=== PATIENT | male | born 1950 | race Caucasian/White ===

== ENCOUNTER 2017-06-27 19:55 | Inpatient (IN) | payer MEDICARE, MEDICAID ==
[2017-06-27 21:55] VITALS: BP 171/84
[2017-06-27] MEDS ORDERED: Maalox 30 mL Cup PO PRN (22:01)
[2017-06-27] MEDS ORDERED: Magnesium Hydroxide (MOM) 30 mL UDC PO PRN (22:01)
[2017-06-28] MEDS: Aspirin 81mg Chewable Tab PO SCH (09:51)
[2017-06-28] MEDS: Multivitamin Tab PO SCH (09:52)
--- NOTE | 2017-06-28 19:32 | History & Physical ---
ADMIT DATE: 06/27/2017 HISTORY OF PRESENT ILLNESS: The patient is a 66-year-old male with long history of coronary artery disease, CHF, status post CABG, status post defibrillator placement, history of chronic smoking, history of dementia, psychosis, admitted to Geropsych Department under Dr. Simmons's service. The patient denies any chest pain, shortness of breath, nausea, vomiting, fever or chills. PAST MEDICAL HISTORY: Coronary artery disease, hypertension, COPD, and hyperlipidemia. PAST SURGICAL HISTORY: CABG, ICD placement. ALLERGIES: None. MEDICATIONS: Follow admission reconciliation. SOCIAL HISTORY: Chronic smoker, drinks socially. No drugs. FAMILY HISTORY: Noncontributory. REVIEW OF SYSTEMS: RENAL SYSTEM: No history of chronic renal disorder. CARDIOVASCULAR SYSTEM: He has history of hypertension, CHF, coronary artery disease status post CABG, status post ICD placement. ENDOCRINE SYSTEM: No diabetes or thyroid problem. GASTROINTESTINAL SYSTEM: No upper or lower gastrointestinal bleed. NEUROLOGICAL SYSTEM: He has history of dementia, psychosis. MUSCULOSKELETAL SYSTEM: No muscular dystrophy. HEMATOLOGIC SYSTEM: No bleeding tendencies. RESPIRATORY SYSTEM: ____. PHYSICAL EXAMINATION: GENERAL: He is awake, alert, oriented. VITAL SIGNS: Temperature is 98, heart rate 65, blood pressure 131/81. HEENT: Normocephalic. Pupils equally reactive to light and accommodation. Sclerae clear. NECK: Supple. Negative for lymphadenopathy, JVD or bruit. CHEST: Bilateral normal. No rhonchi or wheezing. HEART: S1, S2 normal. No murmur or gallop. ABDOMEN: Soft. Bowel sounds positive. EXTREMITIES: No edema. BACK: ____. GENITOURINARY AND RECTAL: No complaint, done by the primary physician. NEUROLOGIC: He is awake, alert, oriented. Cranial nerve #1, the patient with ____. Cranial nerve #2, the patient was able to read ____. Cranial nerve #3, the patient with bipolar ____. Cranial nerve #4, the patient able to move eyeball inward and downwards. Cranial nerve #5, the patient is able to clench teeth and has a normal sensation ____. Cranial nerve #6, the patient able to move eye ball lateral. Cranial nerve #7, the patient able to move eyebrow upward. Cranial nerve #8, the patient was able to hear finger rubs ____. Cranial nerve #9, the patient has normal gag reflex. Cranial nerve #10, the patient was able to move soft palate upward ____. Cranial nerve #11, the patient able to shrug shoulders on both sides. Cranial nerve #12, the patient able to stick tongue straight. Motor system examination within normal limits. Deep tendon reflexes within normal limits. Coordination of muscle within normal limits. ASSESSMENT: 1. Coronary artery disease. 2. Hypertension. 3. Congestive heart failure. 4. Status post coronary artery bypass graft. 5. Status post implantable cardioverter-defibrillator placement. 6. Dementia, psychosis. PLAN: The patient is in the hospital under Dr. Simmons's service. MEDICAL PROBLEMS TO BE ADDRESSED DURING HOSPITALIZATION: Psychosis, dementia. MEDICAL PROBLEMS TO BE ADDRESSED AT DISCHARGE: Hypertension, coronary artery disease. The patient is medically stable for activity. Thank you Dr. Simmons for asking me to see your patient. JOB# [id number]
--- NOTE | 2017-06-28 22:29 | Psychosocial Evaluation ---
DATE OF SERVICE: 06/28/2017 IDENTIFYING INFORMATION: The patient is a 66-year-old male transferred from [facility] on a 5150 hold for being a danger to self and others. HISTORY OF PRESENT ILLNESS: The patient stated that he would not be returning to his [facility] due to paranoid belief that people were there illegally and stealing money from him. The patient stated that he was part of the [employer] and [employer] and that he was going to [place] or imprison anyone who tried to get him psychiatric help. In general, the patient was quite disorganized and delusional, a very poor historian, unable to verify most of his information. PAST PSYCHIATRIC HISTORY: The patient seems to have a history of psychosis. MEDICATIONS: As the records indicated he has been on Risperdal before at 2 mg p.o. t.i.d., unknown if he has been compliant with these medications. MENTAL STATUS EXAMINATION: The patient is fairly groomed, appears to be stated age, somewhat disheveled, poor eye contact, guarded and resistant during interview. Speech is normal rate, rhythm, and tone. Mood and affect irritable and labile. Thought process/thought content: The patient is paranoid, grandiose, and very disorganized. Cognition: The patient is alert, awake, and disoriented, refusing to answer questions regarding orientation or concentration or attention span. Insight and judgment is poor. DIAGNOSTIC IMPRESSION: Psychosis, not otherwise specified, rule out dementia with behavioral disturbances as well as psychotic features. PLAN: We will recommend starting the patient on his medication notably Risperdal 2 mg t.i.d. We will monitor on a daily basis and adjust as needed. [facility]# [id number]
[2017-06-29] MEDS: Multivitamin Tab PO SCH (08:27)
[2017-06-29] MEDS: Aspirin 81mg Chewable Tab PO SCH (08:28)
--- NOTE | 2017-06-29 17:22 | Internal Medicine Prog Note ---
Internal Medicine Subjective - Subjective Service Date: 06/29/17 Patient seen and examined:: without staff (HE FEELS BETTER,NO CHEST PAIN OR SOB. ) Patient is:: awake, in bed Per staff patient has:: no adverse event (HE DENIES ANY CHES T PAIN OR SOB.) Internal Medicine Objective - Physical Exam Vitals and I&O: Vital Signs Temp 97.6 F 06/29/17 15:43 Pulse 48 06/29/17 16:06 Resp 20 06/29/17 15:43 BP 122/76 06/29/17 16:06 Pulse Ox 95 06/29/17 15:43 Intake & Output 06/28/17 06/29/17 06/29/17 18:59 06:59 18:59 Intake Total 120 Balance 120 Intake: Oral 120 Other: # Voids 2 Active Medications: Current Medications Acetaminophen (Tylenol) 650 mg PO Q4HR PRN PRN Reason: Mild Pain / Temp above 100 Stop: 08/26/17 22:00 Last Admin: 06/29/17 08:27 Dose: 650 mg Acetaminophen (Tylenol) 650 mg PO Q6HR PRN PRN Reason: Pain (Mild) Stop: 08/27/17 00:54 Al Hydrox/Mg Hydrox/Simethicone (Maalox) 30 ml PO Q4HR PRN PRN Reason: GI DISTRESS Stop: 08/26/17 22:00 Aspirin (Aspirin Chewable) 81 mg PO DAILY [facility] Stop: 08/27/17 08:59 Last Admin: 06/29/17 08:28 Dose: 81 mg Atorvastatin Calcium (Lipitor) 40 mg PO DAILY [facility] Stop: 08/27/17 08:59 Last Admin: 06/29/17 08:27 Dose: 40 mg Furosemide (Lasix) 40 mg PO DAILY [facility] Stop: 08/27/17 08:59 Last Admin: 06/29/17 08:27 Dose: 40 mg Lorazepam (Ativan) 0.5 mg PO Q4HR PRN; Protocol PRN Reason: Agitation Stop: 07/27/17 22:00 Last Admin: 06/29/17 13:05 Dose: 0.5 mg Magnesium Hydroxide (Milk Of Magnesia) 30 ml PO HS PRN PRN Reason: Constipation Metoprolol Tartrate (Lopressor) 25 mg PO BID [facility] Stop: 08/27/17 08:59 Last Admin: 06/29/17 16:06 Dose: Not Given Multivitamins/Vitamin C (Theragran) 1 tab PO DAILY [facility] Stop: 08/27/17 08:59 Last Admin: 06/29/17 08:27 Dose: 1 tab Risperidone (Risperdal) 2 mg PO TID [facility] Stop: 08/27/17 08:59 Last Admin: 06/29/17 14:51 Dose: 2 mg Zolpidem Tartrate (Ambien) 5 mg PO HS PRN PRN Reason: Insomnia Stop: 08/26/17 22:00 General: alert HEENT: NC/AT, PERRLA, EOMI, anicteric sclerae, throat clear Neck: Supple, No JVD, No thyromegaly, +2 carotid pulse wo bruit, No LAD Lungs: CTAB Cardiovascular: RRR, Normal S1, Normal S2, without murmur Abdomen: soft, non-tender Extremities: clear Neurological: no change Internal Medicine Assmt/Plan - Assessment Assessment: 1.HTN. 2.CAD. 3.CHF. 4.PSYCHOSIS. - Plan Plan: CONTINUE ON CURRENT MEDICATION AND DIET.
--- NOTE | 2017-06-29 22:04 | Progress Notes ---
DATE: 06/29/2017 SUBJECTIVE: The patient seen, chart reviewed, discussed with staff. The patient is currently here on a hold. The patient was paranoid that people at the nursing were legally stealing money from him. He was [employer]. The patient with history of schizophrenia, mumbling to himself, intrusive, demanding to leave to go back to "[place]." Disheveled, still delusional, dirty. Medications were reviewed. Labs were reviewed. No overt side effects. ASSESSMENT: The patient remains delusional, still symptomatic, psychotic, intrusive, demanding to leave, but no clear cut plan, and there are overt concerns about his ability to care for his basic needs. [facility]# [id number]
[2017-06-30] MEDS: Aspirin 81mg Chewable Tab PO SCH (08:42)
[2017-06-30] MEDS: Multivitamin Tab PO SCH (08:42)
--- NOTE | 2017-06-30 18:29 | Internal Medicine Prog Note ---
Internal Medicine Subjective - Subjective Service Date: 06/30/17 Patient seen and examined:: without staff Patient is:: awake, in bed Per staff patient has:: no adverse event (HE DENIES ANY CHES T PAIN OR SOB.) Internal Medicine Objective - Physical Exam Vitals and I&O: Vital Signs Temp 98.2 F 06/30/17 15:45 Pulse 71 06/30/17 17:25 Resp 20 06/30/17 15:45 BP 105/69 06/30/17 17:25 Pulse Ox 97 06/30/17 15:45 Intake & Output 06/29/17 06/30/17 06/30/17 18:59 06:59 18:59 Intake Total 970 Balance 970 Intake: Oral 970 Other: # Voids 2 2 # Bowel Movements 1 1 Active Medications: Current Medications Acetaminophen (Tylenol) 650 mg PO Q4HR PRN PRN Reason: Mild Pain / Temp above 100 Stop: 08/26/17 22:00 Last Admin: 06/29/17 08:27 Dose: 650 mg Acetaminophen (Tylenol) 650 mg PO Q6HR PRN PRN Reason: Pain (Mild) Stop: 08/27/17 00:54 Al Hydrox/Mg Hydrox/Simethicone (Maalox) 30 ml PO Q4HR PRN PRN Reason: GI DISTRESS Stop: 08/26/17 22:00 Aspirin (Aspirin Chewable) 81 mg PO DAILY [facility] Stop: 08/27/17 08:59 Last Admin: 06/30/17 08:42 Dose: 81 mg Atorvastatin Calcium (Lipitor) 40 mg PO DAILY [facility] Stop: 08/27/17 08:59 Last Admin: 06/30/17 08:43 Dose: 40 mg Furosemide (Lasix) 40 mg PO DAILY [facility] Stop: 08/27/17 08:59 Last Admin: 06/30/17 08:43 Dose: 40 mg Lorazepam (Ativan) 0.5 mg PO Q4HR PRN; Protocol PRN Reason: Agitation Stop: 07/27/17 22:00 Last Admin: 06/30/17 10:51 Dose: 0.5 mg Magnesium Hydroxide (Milk Of Magnesia) 30 ml PO HS PRN PRN Reason: Constipation Metoprolol Tartrate (Lopressor) 25 mg PO BID [facility] Stop: 08/27/17 08:59 Last Admin: 06/30/17 17:25 Dose: 25 mg Multivitamins/Vitamin C (Theragran) 1 tab PO DAILY [facility] Stop: 08/27/17 08:59 Last Admin: 06/30/17 08:42 Dose: 1 tab Risperidone (Risperdal) 3 mg PO TID [facility] Stop: 08/27/17 20:59 Zolpidem Tartrate (Ambien) 5 mg PO HS PRN PRN Reason: Insomnia Stop: 08/26/17 22:00 General: alert HEENT: NC/AT, PERRLA, EOMI, anicteric sclerae, throat clear Neck: Supple, No JVD, No thyromegaly, +2 carotid pulse wo bruit, No LAD Lungs: CTAB Cardiovascular: RRR, Normal S1, Normal S2, without murmur Abdomen: soft, non-tender Extremities: clear Neurological: no change Internal Medicine Assmt/Plan - Assessment Assessment: 1.HTN. 2.CAD. 3.CHF. 4.PSYCHOSIS. - Plan Plan: CONTINUE ON CURRENT MEDICATION AND DIET.
--- NOTE | 2017-07-01 01:16 | Progress Notes ---
DATE: 06/30/2017 SUBJECTIVE: Chart reviewed and the patient interviewed. Also discussed the patient's condition with the staff and reviewed records and labs. The patient is still extremely agitated and is still in angry and in irritable mood. The patient also is still aggressive with the staff and with peers and the patient had to be placed in locked room in order to calm him down and to prevent from attacking others. The patient also is still fighting with peers and staff when they are trying to redirect him. The patient had to be also given emergency medications to prevent his aggression and violence. MENTAL STATUS EXAMINATION: The patient is disheveled and in angry mood. Restless. Thought processes are circumstantial with flight of ideas and unable to answer most of the questions coherently because of his agitation and aggressive behavior. ASSESSMENT: The patient is still psychotic and aggressive. TREATMENT PLAN: We will continue to monitor his behavior and his condition closely. Also, we will increase Risperdal to 3 mg twice a day. Also, we will place the patient on a 5250 hold for dangerous to others and we will continue to follow up closely. JOB# [id number]
[2017-07-01] MEDS ORDERED: Haloperidol Lactate 5 mg/mL 1mL Vial IM STA (08:29)
[2017-07-01] MEDS ORDERED: Haloperidol Lactate 5 mg/mL 1mL Vial ONE ×2 (08:43→17:09)
[2017-07-01] MEDS: Aspirin 81mg Chewable Tab PO SCH (10:06)
[2017-07-01] MEDS: Multivitamin Tab PO SCH (10:07)
[2017-07-01] MEDS ORDERED: Haloperidol Lactate 5 mg/mL 1mL Vial IM ONE (17:03)
--- NOTE | 2017-07-01 20:24 | Progress Notes ---
DATE: 07/01/2017 SUBJECTIVE: Chart reviewed and the patient interviewed. Also discussed the patient's condition with the staff and reviewed records and labs. The patient is still extremely irritable and is still extremely agitated. The patient also is demanding and is aggressive. The patient was threatening me during interview and he was restless and needed lots of instructions and I had to leave when the patient continued to be agitated and started to get louder, demanding to leave. He also insists that he can go to although he realized that he has no money. The patient also is still easily agitated and is still threatening staff and threatening peers. During interview, the patient is disheveled. He is angry and he has loud tone of voice. He also is suspicious and is paranoid. ASSESSMENT: The patient is still agitated and he is still dangerous to others. TREATMENT PLAN: We will monitor the patient's behavior and condition closely. Also, we will discontinue Risperdal and we will start the patient on Seroquel 100 mg everyday and on Klonopin 1 mg twice a day. Also, continue to work on behavioral modification and we will continue to follow up. JOB# [id number]
--- NOTE | 2017-07-01 21:00 | Internal Medicine Prog Note ---
Internal Medicine Subjective - Subjective Service Date: 07/01/17 Patient seen and examined:: without staff Patient is:: awake, in bed Per staff patient has:: no adverse event (HE DENIES ANY CHES T PAIN OR SOB.) Internal Medicine Objective - Physical Exam Vitals and I&O: Vital Signs Temp 97.5 F 07/01/17 16:35 Pulse 98 07/01/17 16:35 Resp 18 07/01/17 16:35 BP 115/89 07/01/17 16:35 Pulse Ox 96 07/01/17 16:35 Intake & Output 07/01/17 07/01/17 07/02/17 06:59 18:59 06:59 Intake Total 240 950 Balance 240 950 Intake: Oral 240 950 Other: # Voids 1 4 # Bowel Movements 1 Active Medications: Current Medications Acetaminophen (Tylenol) 650 mg PO Q4HR PRN PRN Reason: Mild Pain / Temp above 100 Stop: 08/26/17 22:00 Last Admin: 06/29/17 08:27 Dose: 650 mg Acetaminophen (Tylenol) 650 mg PO Q6HR PRN PRN Reason: Pain (Mild) Stop: 08/27/17 00:54 Al Hydrox/Mg Hydrox/Simethicone (Maalox) 30 ml PO Q4HR PRN PRN Reason: GI DISTRESS Stop: 08/26/17 22:00 Aspirin (Aspirin Chewable) 81 mg PO DAILY [facility] Stop: 08/27/17 08:59 Last Admin: 07/01/17 10:06 Dose: Not Given Atorvastatin Calcium (Lipitor) 40 mg PO DAILY [facility] Stop: 08/27/17 08:59 Last Admin: 07/01/17 10:06 Dose: Not Given Clonazepam (Klonopin) 1 mg PO BID [facility] PRN Reason: Protocol Stop: 08/30/17 08:59 Last Admin: 07/01/17 16:18 Dose: 1 mg Furosemide (Lasix) 40 mg PO DAILY [facility] Stop: 08/27/17 08:59 Last Admin: 07/01/17 10:07 Dose: Not Given Lorazepam (Ativan) 0.5 mg PO Q4HR PRN; Protocol PRN Reason: Agitation Stop: 07/27/17 22:00 Last Admin: 06/30/17 10:51 Dose: 0.5 mg Magnesium Hydroxide (Milk Of Magnesia) 30 ml PO HS PRN PRN Reason: Constipation Metoprolol Tartrate (Lopressor) 25 mg PO BID [facility] Stop: 08/27/17 08:59 Last Admin: 07/01/17 16:18 Dose: Not Given Multivitamins/Vitamin C (Theragran) 1 tab PO DAILY [facility] Stop: 08/27/17 08:59 Last Admin: 07/01/17 10:07 Dose: Not Given Quetiapine Fumarate (Seroquel) 100 mg PO TID [facility] PRN Reason: Protocol Stop: 08/30/17 08:59 Last Admin: 07/01/17 20:18 Dose: 100 mg Zolpidem Tartrate (Ambien) 5 mg PO HS PRN PRN Reason: Insomnia Stop: 08/26/17 22:00 General: alert HEENT: NC/AT, PERRLA, EOMI, anicteric sclerae, throat clear Neck: Supple, No JVD, No thyromegaly, +2 carotid pulse wo bruit, No LAD Lungs: CTAB Cardiovascular: RRR, Normal S1, Normal S2, without murmur Abdomen: soft, non-tender Extremities: clear Neurological: no change Internal Medicine Assmt/Plan - Assessment Assessment: 1.HTN. 2.CAD. 3.CHF. 4.PSYCHOSIS. - Plan Plan: CONTINUE ON CURRENT MEDICATION AND DIET.
[2017-07-02] MEDS: Aspirin 81mg Chewable Tab PO SCH (08:30)
[2017-07-02] MEDS: Multivitamin Tab PO SCH (08:30)
--- NOTE | 2017-07-02 09:10 | Progress Notes ---
DATE: 07/02/2017 SUBJECTIVE: Chart reviewed and the patient interviewed. Also discussed the patient's condition with the staff and reviewed records and labs. The patient is still extremely irritable and agitated. The patient also is still threatening others and is still in angry and irritable mood. Also refused to answer questions because of his threatening and anger behavior. The patient also is still suspicious and is still paranoid. Yesterday, the patient was extremely agitated and irritable and the patient had to be given Haldol, Ativan, and Benadryl on emergency basis to calm him down. He is still threatening and is still easily agitated. MENTAL STATUS EXAM: The patient is disheveled. Angry and irritable. Thought processes are circumstantial with flight of ideas. The patient denies hallucinations or delusions, but he is actively responding to stimuli. ASSESSMENT: PRIMARY ASSESSMENT: The patient is still psychotic and agitated, and need close monitoring. TREATMENT PLAN: We will increase Seroquel to 200 mg 3 times a day. Also, continue Klonopin 1 mg twice a day. Also, we will work on his poor impulse control and agitation as well as will work on discharge plans and placement issue. JOB# [id number]
--- NOTE | 2017-07-02 20:45 | Internal Medicine Prog Note ---
Internal Medicine Subjective - Subjective Service Date: 07/02/17 Patient seen and examined:: without staff Patient is:: awake, in bed Per staff patient has:: no adverse event (HE DENIES ANY CHES T PAIN OR SOB.) Internal Medicine Objective - Physical Exam Vitals and I&O: Vital Signs Temp 98.1 F 07/02/17 14:00 Pulse 60 07/02/17 16:22 Resp 20 07/02/17 14:00 BP 121/82 07/02/17 16:22 Pulse Ox 95 07/02/17 14:00 Intake & Output 07/02/17 07/02/17 07/03/17 06:59 18:59 06:59 Intake Total 120 1200 Balance 120 1200 Intake: Oral 120 1200 Other: # Voids 4 # Bowel Movements 0 1 Active Medications: Current Medications Acetaminophen (Tylenol) 650 mg PO Q4HR PRN PRN Reason: Mild Pain / Temp above 100 Stop: 08/26/17 22:00 Last Admin: 06/29/17 08:27 Dose: 650 mg Acetaminophen (Tylenol) 650 mg PO Q6HR PRN PRN Reason: Pain (Mild) Stop: 08/27/17 00:54 Al Hydrox/Mg Hydrox/Simethicone (Maalox) 30 ml PO Q4HR PRN PRN Reason: GI DISTRESS Stop: 08/26/17 22:00 Aspirin (Aspirin Chewable) 81 mg PO DAILY [facility] Stop: 08/27/17 08:59 Last Admin: 07/02/17 08:30 Dose: 81 mg Atorvastatin Calcium (Lipitor) 40 mg PO DAILY [facility] Stop: 08/27/17 08:59 Last Admin: 07/02/17 08:28 Dose: 40 mg Clonazepam (Klonopin) 1 mg PO BID [facility] PRN Reason: Protocol Stop: 08/30/17 08:59 Last Admin: 07/02/17 16:22 Dose: 1 mg Furosemide (Lasix) 40 mg PO DAILY [facility] Stop: 08/27/17 08:59 Last Admin: 07/02/17 08:29 Dose: 40 mg Lorazepam (Ativan) 0.5 mg PO Q4HR PRN; Protocol PRN Reason: Agitation Stop: 07/27/17 22:00 Last Admin: 06/30/17 10:51 Dose: 0.5 mg Magnesium Hydroxide (Milk Of Magnesia) 30 ml PO HS PRN PRN Reason: Constipation Metoprolol Tartrate (Lopressor) 25 mg PO BID [facility] Stop: 08/27/17 08:59 Last Admin: 07/02/17 16:22 Dose: 25 mg Multivitamins/Vitamin C (Theragran) 1 tab PO DAILY [facility] Stop: 08/27/17 08:59 Last Admin: 07/02/17 08:30 Dose: 1 tab Quetiapine Fumarate (Seroquel) 200 mg PO TID [facility] PRN Reason: Protocol Stop: 08/30/17 08:59 Last Admin: 07/02/17 15:19 Dose: Not Given Zolpidem Tartrate (Ambien) 5 mg PO HS PRN PRN Reason: Insomnia Stop: 08/26/17 22:00 General: alert HEENT: NC/AT, PERRLA, EOMI, anicteric sclerae, throat clear Neck: Supple, No JVD, No thyromegaly, +2 carotid pulse wo bruit, No LAD Lungs: CTAB Cardiovascular: RRR, Normal S1, Normal S2, without murmur Abdomen: soft, non-tender Extremities: clear Neurological: no change Internal Medicine Assmt/Plan - Assessment Assessment: 1.HTN. 2.CAD. 3.CHF. 4.PSYCHOSIS. - Plan Plan: CONTINUE ON CURRENT MEDICATION AND DIET.
[2017-07-03] MEDS: Aspirin 81mg Chewable Tab PO SCH (08:49)
[2017-07-03] MEDS: Multivitamin Tab PO SCH (08:49)
--- NOTE | 2017-07-03 10:30 | Progress Notes ---
DATE: 07/03/2017 SUBJECTIVE: Chart reviewed and the patient interviewed. Also discussed the patient's condition with the staff and reviewed records and labs. The patient is still agitated and restless, and he is still extremely angry and confused. The patient also still needs lots of redirections and unable to follow directions. Also, yesterday, the patient was aggressive, and threatening staff, and the patient had to be given emergency dose of Haldol, Ativan, and Benadryl to calm him down. The patient is still paranoid and is still in angry mood. Also, he is still trying to get off the [place] chair and is exposing himself to high fall risk and he still needs to be monitored closely. On the other hand, the patient is taking his medications with no side effects of medications, except was slightly sleepy and drowsy this morning. ASSESSMENT: The patient is still psychotic and can be dangerous to others. TREATMENT PLAN: We will continue monitoring his condition and his behavior closely. Also, working on behavioral modification. Also, yesterday, I increased his Seroquel, continue Klonopin. We will continue same dose and monitor for any fall risk. JOB# [id number]
--- NOTE | 2017-07-03 18:02 | Internal Medicine Prog Note ---
Internal Medicine Subjective - Subjective Service Date: 07/03/17 Patient seen and examined:: without staff (HE FEELS BETTER.NO CHEST PAIN OR SOB. ) Patient is:: awake, in bed Per staff patient has:: no adverse event (HE DENIES ANY CHES T PAIN OR SOB.) Internal Medicine Objective - Physical Exam Vitals and I&O: Vital Signs Temp 97.4 F 07/03/17 07:11 Pulse 72 07/03/17 17:06 Resp 19 07/03/17 07:11 BP 130/76 07/03/17 17:06 Pulse Ox 94 07/03/17 07:11 Intake & Output 07/02/17 07/03/17 07/03/17 18:59 06:59 18:59 Intake Total 1200 120 Balance 1200 120 Intake: Oral 1200 120 Other: # Voids 3 # Bowel Movements 1 Active Medications: Current Medications Acetaminophen (Tylenol) 650 mg PO Q4HR PRN PRN Reason: Mild Pain / Temp above 100 Stop: 08/26/17 22:00 Last Admin: 06/29/17 08:27 Dose: 650 mg Acetaminophen (Tylenol) 650 mg PO Q6HR PRN PRN Reason: Pain (Mild) Stop: 08/27/17 00:54 Al Hydrox/Mg Hydrox/Simethicone (Maalox) 30 ml PO Q4HR PRN PRN Reason: GI DISTRESS Stop: 08/26/17 22:00 Aspirin (Aspirin Chewable) 81 mg PO DAILY [facility] Stop: 08/27/17 08:59 Last Admin: 07/03/17 08:49 Dose: 81 mg Atorvastatin Calcium (Lipitor) 40 mg PO DAILY [facility] Stop: 08/27/17 08:59 Last Admin: 07/03/17 08:49 Dose: 40 mg Clonazepam (Klonopin) 1 mg PO BID [facility] PRN Reason: Protocol Stop: 08/30/17 08:59 Last Admin: 07/03/17 17:07 Dose: 1 mg Furosemide (Lasix) 40 mg PO DAILY [facility] Stop: 08/27/17 08:59 Last Admin: 07/03/17 08:48 Dose: Not Given Lorazepam (Ativan) 0.5 mg PO Q4HR PRN; Protocol PRN Reason: Agitation Stop: 07/27/17 22:00 Last Admin: 06/30/17 10:51 Dose: 0.5 mg Magnesium Hydroxide (Milk Of Magnesia) 30 ml PO HS PRN PRN Reason: Constipation Metoprolol Tartrate (Lopressor) 25 mg PO BID [facility] Stop: 08/27/17 08:59 Last Admin: 07/03/17 17:06 Dose: 25 mg Multivitamins/Vitamin C (Theragran) 1 tab PO DAILY [facility] Stop: 08/27/17 08:59 Last Admin: 07/03/17 08:49 Dose: 1 tab Quetiapine Fumarate (Seroquel) 200 mg PO TID [facility] PRN Reason: Protocol Stop: 08/30/17 08:59 Last Admin: 07/03/17 14:44 Dose: Not Given Zolpidem Tartrate (Ambien) 5 mg PO HS PRN PRN Reason: Insomnia Stop: 08/26/17 22:00 General: alert HEENT: NC/AT, PERRLA, EOMI, anicteric sclerae, throat clear Neck: Supple, No JVD, No thyromegaly, +2 carotid pulse wo bruit, No LAD Lungs: CTAB Cardiovascular: RRR, Normal S1, Normal S2, without murmur Abdomen: soft, non-tender Extremities: clear Neurological: no change Internal Medicine Assmt/Plan - Assessment Assessment: 1.HTN. 2.CAD. 3.CHF. 4.PSYCHOSIS. - Plan Plan: CONTINUE ON CURRENT MEDICATION AND DIET.
[2017-07-04] MEDS: Multivitamin Tab PO SCH (09:14)
[2017-07-04] MEDS: Aspirin 81mg Chewable Tab PO SCH (09:18)
--- NOTE | 2017-07-04 11:56 | Progress Notes ---
DATE: 07/04/2017 SUBJECTIVE: Chart reviewed and the patient interviewed. Also discussed the patient's condition with the staff and reviewed records and labs. The patient still has periods of agitation and irritability, but today the patient seems to be slightly sedated. The patient also is still demented and still has problems with following directions. The patient also is still disheveled and personal hygiene is still poor. Otherwise, the patient is interacting minimally with others. MENTAL STATUS EXAM: During interview, the patient is disheveled. Also is still having thought processes that are circumstantial with flight of ideas. TREATMENT PLAN: We will continue monitoring his behavior and his condition closely. Also, we will monitor decrease Klonopin to 0.5 mg twice a day and we will continue to follow up. Also, working on placement issue and on discharge plans. JOB# [id number]
--- NOTE | 2017-07-04 15:51 | Internal Medicine Prog Note ---
Internal Medicine Subjective - Subjective Service Date: 07/04/17 Patient is:: awake, in bed Per staff patient has:: no adverse event (HE DENIES ANY CHES T PAIN OR SOB.) Internal Medicine Objective - Physical Exam Vitals and I&O: Vital Signs Temp 98 F 07/04/17 06:44 Pulse 79 07/04/17 09:15 Resp 20 07/04/17 06:44 BP 147/63 07/04/17 09:15 Pulse Ox 98 07/04/17 06:44 Intake & Output 07/03/17 07/04/17 07/04/17 18:59 06:59 18:59 Intake Total 620 120 Balance 620 120 Intake: Oral 620 120 Other: # Voids 2 3 Active Medications: Current Medications Acetaminophen (Tylenol) 650 mg PO Q4HR PRN PRN Reason: Mild Pain / Temp above 100 Stop: 08/26/17 22:00 Last Admin: 06/29/17 08:27 Dose: 650 mg Acetaminophen (Tylenol) 650 mg PO Q6HR PRN PRN Reason: Pain (Mild) Stop: 08/27/17 00:54 Al Hydrox/Mg Hydrox/Simethicone (Maalox) 30 ml PO Q4HR PRN PRN Reason: GI DISTRESS Stop: 08/26/17 22:00 Aspirin (Aspirin Chewable) 81 mg PO DAILY [facility] Stop: 08/27/17 08:59 Last Admin: 07/04/17 09:18 Dose: 81 mg Atorvastatin Calcium (Lipitor) 40 mg PO DAILY [facility] Stop: 08/27/17 08:59 Last Admin: 07/04/17 09:14 Dose: 40 mg Clonazepam (Klonopin) 0.5 mg PO BID [facility] PRN Reason: Protocol Stop: 08/30/17 16:59 Furosemide (Lasix) 40 mg PO DAILY [facility] Stop: 08/27/17 08:59 Last Admin: 07/04/17 09:14 Dose: 40 mg Lorazepam (Ativan) 0.5 mg PO Q4HR PRN; Protocol PRN Reason: Agitation Stop: 07/27/17 22:00 Last Admin: 06/30/17 10:51 Dose: 0.5 mg Magnesium Hydroxide (Milk Of Magnesia) 30 ml PO HS PRN PRN Reason: Constipation Metoprolol Tartrate (Lopressor) 25 mg PO BID [facility] Stop: 08/27/17 08:59 Last Admin: 07/04/17 09:15 Dose: 25 mg Multivitamins/Vitamin C (Theragran) 1 tab PO DAILY [facility] Stop: 08/27/17 08:59 Last Admin: 07/04/17 09:14 Dose: 1 tab Quetiapine Fumarate (Seroquel) 200 mg PO TID [facility] PRN Reason: Protocol Stop: 08/30/17 08:59 Last Admin: 07/04/17 14:19 Dose: Not Given Zolpidem Tartrate (Ambien) 5 mg PO HS PRN PRN Reason: Insomnia Stop: 08/26/17 22:00 General: alert HEENT: NC/AT, PERRLA, EOMI, anicteric sclerae, throat clear Neck: Supple, No JVD, No thyromegaly, +2 carotid pulse wo bruit, No LAD Lungs: CTAB Cardiovascular: RRR, Normal S1, Normal S2, without murmur Abdomen: soft, non-tender Extremities: clear Neurological: no change Internal Medicine Assmt/Plan - Assessment Assessment: 1.HTN. 2.CAD. 3.CHF. 4.PSYCHOSIS. - Plan Plan: CONTINUE ON CURRENT MEDICATION AND DIET. Nutritional Asmnt/Malnutr-PDOC - Dietary Evaluation Malnutrition Findings (Please click <Entered> for more info): Nutritional Asmnt/Malnutrition Start: 07/03/17 19: 56 Text: Status: Complete Freq: Document 07/03/17 19:56 [facility] (Rec: 07/03/17 20:00 [facility] [id number]) Nutritional Asmnt/Malnutrition Patient General Information Nutritional Screening Moderate Risk Screening Diagnosis Psychosis Pertinent Medical Hx/Surgical Hx CAD, HTN, COPD, hyperlipidemia , CABG, ICD placement, psychosis Subjective Information Pt is a 66-year-old male admitted with chief complaint of paranoia. Per RN notes, pt is confused, aggressive, and easily irritable. Current Diet Order/ Nutrition Support Low sodium 1500 ml fluid restriction Patient / S.O Can't verbalize diet edu Pertinent Medications Theragran Pertinent Labs Reviewed Nutritional Hx/Data Height 1.78 m Height (Calculated Centimeters) 177.8 Current Weight (lbs) 86.183 kg Weight (Calculated Kilograms) 86.2 Weight (Calculated Grams) 13836.6 [place] Body Weight 166 % [place] Body Weight 115 Weight Status Overweight GI Symptoms GI Symptoms None Food Allergies No Skin Integrity/Comment: Lisandro Benjamin, skin intact. Current %PO Good (75-100%) Estimated Nutritional Goals BEE in Kcals: Using Current wt Calories/Kcals/Kg Based on current wt 86.4 kg with consideration of wheelchair-bound status Kcals Calculated 6775-9197 kcals/day (20-25 kcals/kg) Protein: Using Current wt Protein g/kg: Based on current wt 86.4 kg with consideration of wheelchair-bound status Protein Calculated 86 gm/day (1 gm/kg) Fluid: ml Per MD/DO due to fluid restriction. Nutritional Problem 1. Problem Problem No nutritional problems at this time. Malnutrition Alert Protein-Calorie Malnutrition N/A Is there a minimum of two criteria No selected? Query Text:Check all the applicable criteria. A minimum of two criteria are recommended for diagnosis of either severe or non-severe malnutrition. Malnutrition Related to Morbid Obesity Malnutrition related to morbid obesity No Intervention/Recommendation Comments 1. Continue with current diet as tolerated. Fluid restriction per MD/DO. Expected Outcomes/Goals Expected Outcomes/Goals Have pt meet at least 75% of estimated nutritional needs.
[2017-07-05] MEDS: Aspirin 81mg Chewable Tab PO SCH (10:39)
[2017-07-05] MEDS: Multivitamin Tab PO SCH (10:44)
--- NOTE | 2017-07-05 16:22 | General Progress Note ---
Subjective - Review of Systems Service Date: 07/05/17 Subjective: resting comfortably no distress Objective - Physical Exam Vitals and I&O: Vital Signs Temp 98.2 F 07/05/17 15:29 Pulse 64 07/05/17 15:29 Resp 20 07/05/17 15:29 BP 110/54 07/05/17 15:29 Pulse Ox 97 07/05/17 15:29 Intake & Output 07/04/17 07/05/17 07/05/17 18:59 06:59 18:59 Intake Total 120 340 Balance 120 340 Intake: Oral 120 340 Other: # Voids 2 2 Active Medications: Current Medications Acetaminophen (Tylenol) 650 mg PO Q4HR PRN PRN Reason: Mild Pain / Temp above 100 Stop: 08/26/17 22:00 Last Admin: 06/29/17 08:27 Dose: 650 mg Acetaminophen (Tylenol) 650 mg PO Q6HR PRN PRN Reason: Pain (Mild) Stop: 08/27/17 00:54 Al Hydrox/Mg Hydrox/Simethicone (Maalox) 30 ml PO Q4HR PRN PRN Reason: GI DISTRESS Stop: 08/26/17 22:00 Aspirin (Aspirin Chewable) 81 mg PO DAILY [facility] Stop: 08/27/17 08:59 Last Admin: 07/05/17 10:39 Dose: 81 mg Atorvastatin Calcium (Lipitor) 40 mg PO DAILY [facility] Stop: 08/27/17 08:59 Last Admin: 07/05/17 10:39 Dose: 40 mg Clonazepam (Klonopin) 0.5 mg PO BID [facility] PRN Reason: Protocol Stop: 09/03/17 16:59 Furosemide (Lasix) 40 mg PO DAILY [facility] Stop: 08/27/17 08:59 Last Admin: 07/05/17 10:40 Dose: Not Given Lorazepam (Ativan) 0.5 mg PO Q4HR PRN; Protocol PRN Reason: Agitation Stop: 07/27/17 22:00 Last Admin: 07/04/17 20:23 Dose: 0.5 mg Magnesium Hydroxide (Milk Of Magnesia) 30 ml PO HS PRN PRN Reason: Constipation Metoprolol Tartrate (Lopressor) 25 mg PO BID [facility] Stop: 08/27/17 08:59 Last Admin: 07/05/17 10:42 Dose: Not Given Multivitamins/Vitamin C (Theragran) 1 tab PO DAILY [facility] Stop: 08/27/17 08:59 Last Admin: 07/05/17 10:44 Dose: 1 tab Quetiapine Fumarate (Seroquel) 200 mg PO TID [facility] PRN Reason: Protocol Stop: 08/30/17 08:59 Last Admin: 07/05/17 14:38 Dose: 200 mg Zolpidem Tartrate (Ambien) 5 mg PO HS PRN PRN Reason: Insomnia Stop: 08/26/17 22:00 General: Cooperative HEENT: PERRLA Neck: Supple Cardiovascular: Regular rate, Normal S1, Normal S2 Lungs: Clear to auscultation Abdomen: Soft Assessment/Plan - Assessment Assessment: 1.HTN. 2.CAD. 3.CHF. 4.PSYCHOSIS. - Plan Plan: cont current treatment Nutritional Asmnt/Malnutr-PDOC - Dietary Evaluation Malnutrition Findings (Please click <Entered> for more info): Nutritional Asmnt/Malnutrition Start: 07/03/17 19: 56 Text: Status: Complete Freq: Document 07/03/17 19:56 [facility] (Rec: 07/03/17 20:00 [facility] [id number]) Nutritional Asmnt/Malnutrition Patient General Information Nutritional Screening Moderate Risk Screening Diagnosis Psychosis Pertinent Medical Hx/Surgical Hx CAD, HTN, COPD, hyperlipidemia , CABG, ICD placement, psychosis Subjective Information Pt is a 66-year-old male admitted with chief complaint of paranoia. Per RN notes, pt is confused, aggressive, and easily irritable. Current Diet Order/ Nutrition Support Low sodium 1500 ml fluid restriction Patient / S.O Can't verbalize diet edu Pertinent Medications Theragran Pertinent Labs Reviewed Nutritional Hx/Data Height 1.78 m Height (Calculated Centimeters) 177.8 Current Weight (lbs) 86.183 kg Weight (Calculated Kilograms) 86.2 Weight (Calculated Grams) 49710.6 [place] Body Weight 166 % [place] Body Weight 115 Weight Status Overweight GI Symptoms GI Symptoms None Food Allergies No Skin Integrity/Comment: Lisandro 19, skin intact. Current %PO Good (75-100%) Estimated Nutritional Goals BEE in Kcals: Using Current wt Calories/Kcals/Kg Based on current wt 86.4 kg with consideration of wheelchair-bound status Kcals Calculated 9600-9285 kcals/day (20-25 kcals/kg) Protein: Using Current wt Protein g/kg: Based on current wt 86.4 kg with consideration of wheelchair-bound status Protein Calculated 86 gm/day (1 gm/kg) Fluid: ml Per MD/DO due to fluid restriction. Nutritional Problem 1. Problem Problem No nutritional problems at this time. Malnutrition Alert Protein-Calorie Malnutrition N/A Is there a minimum of two criteria No selected? Query Text:Check all the applicable criteria. A minimum of two criteria are recommended for diagnosis of either severe or non-severe malnutrition. Malnutrition Related to Morbid Obesity Malnutrition related to morbid obesity No Intervention/Recommendation Comments 1. Continue with current diet as tolerated. Fluid restriction per MD/DO. Expected Outcomes/Goals Expected Outcomes/Goals Have pt meet at least 75% of estimated nutritional needs.
--- NOTE | 2017-07-05 20:22 | Progress Notes ---
DATE: 07/05/2017 SUBJECTIVE: Chart reviewed and the patient interviewed. Also discussed the patient's condition with the staff and reviewed records and labs. The patient continues to be confused and is still easily agitated and in irritable mood. The patient also is suspicious and is still paranoid. The patient also is still angry and is threatening peers and others. On the other hand, the patient is easier to redirect him and he seems to be slightly calmer than when he first came into the hospital. His thought processes are still circumstantial with flight of ideas. ASSESSMENT: The patient is still psychotic, but seems to be less agitated. TREATMENT PLAN: We will continue to monitor his behavior and his condition closely. Also, continue to work on his irritability and anger and continue to follow up. JOB# [id number]
[2017-07-06] MEDS: Multivitamin Tab PO SCH (08:49)
[2017-07-06] MEDS: Aspirin 81mg Chewable Tab PO SCH (08:49)
--- NOTE | 2017-07-06 17:09 | General Progress Note ---
Subjective - Review of Systems Service Date: 07/06/17 Subjective: resting comfortably no distress Objective - Physical Exam Vitals and I&O: Vital Signs Temp 98.3 F 07/06/17 15:52 Pulse 86 07/06/17 16:48 Resp 18 07/06/17 15:52 BP 132/80 07/06/17 16:48 Pulse Ox 94 07/06/17 15:52 Intake & Output 07/05/17 07/06/17 07/06/17 18:59 06:59 18:59 Intake Total 500 400 Balance 500 400 Intake: Oral 500 400 Other: # Voids 2 2 Active Medications: Current Medications Acetaminophen (Tylenol) 650 mg PO Q4HR PRN PRN Reason: Mild Pain / Temp above 100 Stop: 08/26/17 22:00 Last Admin: 06/29/17 08:27 Dose: 650 mg Acetaminophen (Tylenol) 650 mg PO Q6HR PRN PRN Reason: Pain (Mild) Stop: 08/27/17 00:54 Al Hydrox/Mg Hydrox/Simethicone (Maalox) 30 ml PO Q4HR PRN PRN Reason: GI DISTRESS Stop: 08/26/17 22:00 Aspirin (Aspirin Chewable) 81 mg PO DAILY [facility] Stop: 08/27/17 08:59 Last Admin: 07/06/17 08:49 Dose: 81 mg Atorvastatin Calcium (Lipitor) 40 mg PO DAILY [facility] Stop: 08/27/17 08:59 Last Admin: 07/06/17 08:49 Dose: 40 mg Clonazepam (Klonopin) 0.5 mg PO BID [facility] PRN Reason: Protocol Stop: 09/03/17 16:59 Last Admin: 07/06/17 16:48 Dose: 0.5 mg Furosemide (Lasix) 40 mg PO DAILY [facility] Stop: 08/27/17 08:59 Last Admin: 07/06/17 08:49 Dose: Not Given Lorazepam (Ativan) 0.5 mg PO Q4HR PRN; Protocol PRN Reason: Agitation Stop: 07/27/17 22:00 Last Admin: 07/04/17 20:23 Dose: 0.5 mg Magnesium Hydroxide (Milk Of Magnesia) 30 ml PO HS PRN PRN Reason: Constipation Metoprolol Tartrate (Lopressor) 25 mg PO BID [facility] Stop: 08/27/17 08:59 Last Admin: 08/20/17 16:48 Dose: 25 mg Multivitamins/Vitamin C (Theragran) 1 tab PO DAILY [facility] Stop: 08/27/17 08:59 Last Admin: 07/06/17 08:49 Dose: 1 tab Quetiapine Fumarate (Seroquel) 200 mg PO TID [facility] PRN Reason: Protocol Stop: 08/30/17 08:59 Last Admin: 07/06/17 16:32 Dose: Not Given Zolpidem Tartrate (Ambien) 5 mg PO HS PRN PRN Reason: Insomnia Stop: 08/26/17 22:00 Last Admin: 07/06/17 00:28 Dose: 5 mg General: Cooperative HEENT: PERRLA Neck: Supple Cardiovascular: Regular rate, Normal S1, Normal S2 Lungs: Clear to auscultation Abdomen: Soft Assessment/Plan - Assessment Assessment: 1.HTN. 2.CAD. 3.CHF. 4.PSYCHOSIS. - Plan Plan: cont current treatment Nutritional Asmnt/Malnutr-PDOC - Dietary Evaluation Malnutrition Findings (Please click <Entered> for more info): Nutritional Asmnt/Malnutrition Start: 07/03/17 19: 56 Text: Status: Complete Freq: Document 07/03/17 19:56 [facility] (Rec: 07/03/17 20:00 [facility] [id number]) Nutritional Asmnt/Malnutrition Patient General Information Nutritional Screening Moderate Risk Screening Diagnosis Psychosis Pertinent Medical Hx/Surgical Hx CAD, HTN, COPD, hyperlipidemia , CABG, ICD placement, psychosis Subjective Information Pt is a 66-year-old male admitted with chief complaint of paranoia. Per RN notes, pt is confused, aggressive, and easily irritable. Current Diet Order/ Nutrition Support Low sodium 1500 ml fluid restriction Patient / S.O Can't verbalize diet edu Pertinent Medications Theragran Pertinent Labs Reviewed Nutritional Hx/Data Height 1.78 m Height (Calculated Centimeters) 177.8 Current Weight (lbs) 86.183 kg Weight (Calculated Kilograms) 86.2 Weight (Calculated Grams) 37420.6 [place] Body Weight 166 % [place] Body Weight 115 Weight Status Overweight GI Symptoms GI Symptoms None Food Allergies No Skin Integrity/Comment: Lisandro 19, skin intact. Current %PO Good (75-100%) Estimated Nutritional Goals BEE in Kcals: Using Current wt Calories/Kcals/Kg Based on current wt 86.4 kg with consideration of wheelchair-bound status Kcals Calculated 4260-4250 kcals/day (20-25 kcals/kg) Protein: Using Current wt Protein g/kg: Based on current wt 86.4 kg with consideration of wheelchair-bound status Protein Calculated 86 gm/day (1 gm/kg) Fluid: ml Per MD/DO due to fluid restriction. Nutritional Problem 1. Problem Problem No nutritional problems at this time. Malnutrition Alert Protein-Calorie Malnutrition N/A Is there a minimum of two criteria No selected? Query Text:Check all the applicable criteria. A minimum of two criteria are recommended for diagnosis of either severe or non-severe malnutrition. Malnutrition Related to Morbid Obesity Malnutrition related to morbid obesity No Intervention/Recommendation Comments 1. Continue with current diet as tolerated. Fluid restriction per MD/DO. Expected Outcomes/Goals Expected Outcomes/Goals Have pt meet at least 75% of estimated nutritional needs.
--- NOTE | 2017-07-06 19:05 | Progress Notes ---
DATE: 07/06/2017 SUBJECTIVE: Chart reviewed and the patient interviewed. Also, discussed the patient's condition with the staff and reviewed records and labs. The patient still has episodes of agitation and irritability. The patient also is still angry and asking to leave. Also, is still having difficulty following the staff directions, although it seems to be slightly easier to redirect him. The patient also is still argumentative. Otherwise, the patient is compliant with taking his medications with no side effects of medications. ASSESSMENT: The patient is still aggressive and irritable. TREATMENT PLAN: We will continue monitoring his behavior and his condition closely. Also, continue to work on his anger. Also, working with caseworker protective services in regard to discharge plans and placement issue. JOB# [id number]
[2017-07-07] MEDS: Multivitamin Tab PO SCH (08:15)
[2017-07-07] MEDS: Aspirin 81mg Chewable Tab PO SCH (08:15)
--- NOTE | 2017-07-07 18:14 | Internal Medicine Prog Note ---
Internal Medicine Subjective - Subjective Service Date: 07/07/17 Patient seen and examined:: without staff Patient is:: awake, in bed, denies any new complaints Per staff patient has:: no adverse event (HE DENIES ANY CHES T PAIN OR SOB.) Internal Medicine Objective - Physical Exam Vitals and I&O: Vital Signs Temp 97.7 F 07/07/17 16:40 Pulse 65 07/07/17 16:40 Resp 20 07/07/17 16:40 BP 126/91 07/07/17 16:40 Pulse Ox 97 07/07/17 16:40 Intake & Output 07/06/17 07/07/17 07/07/17 18:59 06:59 18:59 Intake Total 1350 1800 Balance 1350 1800 Intake: Oral 1350 1800 Other: # Voids 4 4 # Bowel Movements 1 0 Active Medications: Current Medications Acetaminophen (Tylenol) 650 mg PO Q4HR PRN PRN Reason: Mild Pain / Temp above 100 Stop: 08/26/17 22:00 Last Admin: 06/29/17 08:27 Dose: 650 mg Acetaminophen (Tylenol) 650 mg PO Q6HR PRN PRN Reason: Pain (Mild) Stop: 08/27/17 00:54 Al Hydrox/Mg Hydrox/Simethicone (Maalox) 30 ml PO Q4HR PRN PRN Reason: GI DISTRESS Stop: 08/26/17 22:00 Aspirin (Aspirin Chewable) 81 mg PO DAILY [facility] Stop: 08/27/17 08:59 Last Admin: 07/07/17 08:15 Dose: 81 mg Atorvastatin Calcium (Lipitor) 40 mg PO DAILY [facility] Stop: 08/27/17 08:59 Last Admin: 07/07/17 08:16 Dose: 40 mg Clonazepam (Klonopin) 0.5 mg PO BID [facility] PRN Reason: Protocol Stop: 09/03/17 16:59 Last Admin: 07/07/17 16:26 Dose: Not Given Furosemide (Lasix) 40 mg PO DAILY [facility] Stop: 08/27/17 08:59 Last Admin: 07/07/17 08:16 Dose: Not Given Lorazepam (Ativan) 0.5 mg PO Q4HR PRN; Protocol PRN Reason: Agitation Stop: 07/27/17 22:00 Last Admin: 07/04/17 20:23 Dose: 0.5 mg Magnesium Hydroxide (Milk Of Magnesia) 30 ml PO HS PRN PRN Reason: Constipation Metoprolol Tartrate (Lopressor) 25 mg PO BID [facility] Stop: 08/27/17 08:59 Last Admin: 07/07/17 16:26 Dose: Not Given Multivitamins/Vitamin C (Theragran) 1 tab PO DAILY [facility] Stop: 08/27/17 08:59 Last Admin: 07/07/17 08:15 Dose: 1 tab Quetiapine Fumarate (Seroquel) 200 mg PO TID [facility] PRN Reason: Protocol Stop: 08/30/17 08:59 Last Admin: 07/07/17 16:26 Dose: Not Given Zolpidem Tartrate (Ambien) 5 mg PO HS PRN PRN Reason: Insomnia Stop: 08/26/17 22:00 Last Admin: 07/06/17 00:28 Dose: 5 mg General: alert HEENT: NC/AT, PERRLA, EOMI, anicteric sclerae, throat clear Neck: Supple, No JVD, No thyromegaly, +2 carotid pulse wo bruit, No LAD Lungs: CTAB Cardiovascular: RRR, Normal S1, Normal S2, without murmur Abdomen: soft, non-tender Extremities: clear Neurological: no change Internal Medicine Assmt/Plan - Assessment Assessment: 1.HTN. 2.CAD. 3.CHF. 4.PSYCHOSIS. - Plan Plan: CONTINUE ON CURRENT MEDICATION AND DIET. Nutritional Asmnt/Malnutr-PDOC - Dietary Evaluation Malnutrition Findings (Please click <Entered> for more info): Nutritional Asmnt/Malnutrition Start: 07/03/17 19: 56 Text: Status: Complete Freq: Document 07/03/17 19:56 [facility] (Rec: 07/03/17 20:00 [facility] [id number]) Nutritional Asmnt/Malnutrition Patient General Information Nutritional Screening Moderate Risk Screening Diagnosis Psychosis Pertinent Medical Hx/Surgical Hx CAD, HTN, COPD, hyperlipidemia , CABG, ICD placement, psychosis Subjective Information Pt is a 66-year-old male admitted with chief complaint of paranoia. Per RN notes, pt is confused, aggressive, and easily irritable. Current Diet Order/ Nutrition Support Low sodium 1500 ml fluid restriction Patient / S.O Can't verbalize diet edu Pertinent Medications Theragran Pertinent Labs Reviewed Nutritional Hx/Data Height 1.78 m Height (Calculated Centimeters) 177.8 Current Weight (lbs) 86.183 kg Weight (Calculated Kilograms) 86.2 Weight (Calculated Grams) 35667.6 [place] Body Weight 166 % [place] Body Weight 115 Weight Status Overweight GI Symptoms GI Symptoms None Food Allergies No Skin Integrity/Comment: Lisandro Benjamin, skin intact. Current %PO Good (75-100%) Estimated Nutritional Goals BEE in Kcals: Using Current wt Calories/Kcals/Kg Based on current wt 86.4 kg with consideration of wheelchair-bound status Kcals Calculated 1763-5362 kcals/day (20-25 kcals/kg) Protein: Using Current wt Protein g/kg: Based on current wt 86.4 kg with consideration of wheelchair-bound status Protein Calculated 86 gm/day (1 gm/kg) Fluid: ml Per MD/DO due to fluid restriction. Nutritional Problem 1. Problem Problem No nutritional problems at this time. Malnutrition Alert Protein-Calorie Malnutrition N/A Is there a minimum of two criteria No selected? Query Text:Check all the applicable criteria. A minimum of two criteria are recommended for diagnosis of either severe or non-severe malnutrition. Malnutrition Related to Morbid Obesity Malnutrition related to morbid obesity No Intervention/Recommendation Comments 1. Continue with current diet as tolerated. Fluid restriction per MD/DO. Expected Outcomes/Goals Expected Outcomes/Goals Have pt meet at least 75% of estimated nutritional needs.
--- NOTE | 2017-07-08 00:58 | Progress Notes ---
DATE: 07/07/2017 Case was discussed with staff of the patient, reviewed records. This is a 66-year-old male who was admitted on 06/27/2017. He was transferred from [facility] on a hold for danger to self and others. The patient states he would not be returning to his correction because of a paranoid belief that people were there illegally and stealing money from him. The patient stated that he was part of a [employer] and [employer] and that he was going to [place] or imprison anyone who tried to get him psychiatric help. The patient was quite disorganized, delusional, very poor insight. Unable to make safe plan for self-care. He is being compliant with the medication with no side effects, no sedation, no nausea. The patient is on Seroquel 200 mg 3 times a day and Klonopin 0.5 mg twice a day that was initiated by Dr. Simmons 2 days ago with no side effects, no sedation, no nausea. He is still paranoid, delusional, cannot make safe plan for self-care. We will continue the patient in group therapy, milieu therapy, and adjust medication as needed. JOB# [id number]
[2017-07-08] MEDS: Aspirin 81mg Chewable Tab PO SCH (08:35)
[2017-07-08] MEDS: Multivitamin Tab PO SCH (08:35)
--- NOTE | 2017-07-08 15:03 | Progress Notes ---
DATE: 07/08/2017 Case was discussed with staff of the patient, reviewed records. The patient continues to have poor insight and continues preoccupied. Unable to make safe plan for self-care, easily agitated, continues to be irritable, angry, unable to follow direction. Continues to have episodes of irritability, aggressive behavior. He is compliant to both the medication with no side effects, no sedation, no nausea, no extrapyramidal symptoms. He is on Seroquel 200 mg 3 times a day. We will continue to work with the patient in group therapy, milieu therapy, and adjust medication as needed. JOB# [id number]
[2017-07-08] MEDS ORDERED: chlorproMAZINE 25 mg/mL 2mL Amp ONE (15:45)
[2017-07-08] MEDS ORDERED: chlorproMAZINE 25 mg/mL 2mL Amp IM STA (15:53)
--- NOTE | 2017-07-08 20:35 | Internal Medicine Prog Note ---
Internal Medicine Subjective - Subjective Service Date: 07/08/17 Patient seen and examined:: without staff (he feels better.) Patient is:: awake, in bed, denies any new complaints Per staff patient has:: no adverse event (HE DENIES ANY CHES T PAIN OR SOB.) Internal Medicine Objective - Physical Exam Vitals and I&O: Vital Signs Temp 98 F 07/08/17 14:00 Pulse 76 07/08/17 14:00 Resp 20 07/08/17 14:00 BP 111/62 07/08/17 14:00 Pulse Ox 95 07/08/17 14:00 Intake & Output 07/08/17 07/08/17 07/09/17 06:59 18:59 06:59 Intake Total 240 2400 Balance 240 2400 Intake: Oral 240 2400 Other: # Voids 3 4 # Bowel Movements 0 0 Active Medications: Current Medications Acetaminophen (Tylenol) 650 mg PO Q4HR PRN PRN Reason: Mild Pain / Temp above 100 Stop: 08/26/17 22:00 Last Admin: 06/29/17 08:27 Dose: 650 mg Acetaminophen (Tylenol) 650 mg PO Q6HR PRN PRN Reason: Pain (Mild) Stop: 08/27/17 00:54 Al Hydrox/Mg Hydrox/Simethicone (Maalox) 30 ml PO Q4HR PRN PRN Reason: GI DISTRESS Stop: 08/26/17 22:00 Aspirin (Aspirin Chewable) 81 mg PO DAILY [facility] Stop: 08/27/17 08:59 Last Admin: 07/08/17 08:35 Dose: 81 mg Atorvastatin Calcium (Lipitor) 40 mg PO DAILY [facility] Stop: 08/27/17 08:59 Last Admin: 07/08/17 08:35 Dose: 40 mg Clonazepam (Klonopin) 0.5 mg PO BID [facility] PRN Reason: Protocol Stop: 09/03/17 16:59 Last Admin: 07/08/17 17:59 Dose: Not Given Furosemide (Lasix) 40 mg PO DAILY [facility] Stop: 08/27/17 08:59 Last Admin: 07/08/17 08:36 Dose: 40 mg Lorazepam (Ativan) 0.5 mg PO Q4HR PRN; Protocol PRN Reason: Agitation Stop: 07/27/17 22:00 Last Admin: 07/04/17 20:23 Dose: 0.5 mg Magnesium Hydroxide (Milk Of Magnesia) 30 ml PO HS PRN PRN Reason: Constipation Metoprolol Tartrate (Lopressor) 25 mg PO BID [facility] Stop: 08/27/17 08:59 Last Admin: 07/08/17 17:59 Dose: Not Given Multivitamins/Vitamin C (Theragran) 1 tab PO DAILY [facility] Stop: 08/27/17 08:59 Last Admin: 07/08/17 08:35 Dose: 1 tab Quetiapine Fumarate (Seroquel) 200 mg PO TID [facility] PRN Reason: Protocol Stop: 08/30/17 08:59 Last Admin: 07/08/17 15:56 Dose: Not Given Zolpidem Tartrate (Ambien) 5 mg PO HS PRN PRN Reason: Insomnia Stop: 08/26/17 22:00 Last Admin: 07/06/17 00:28 Dose: 5 mg General: alert HEENT: NC/AT, PERRLA, EOMI, anicteric sclerae, throat clear Neck: Supple, No JVD, No thyromegaly, +2 carotid pulse wo bruit, No LAD Lungs: CTAB Cardiovascular: RRR, Normal S1, Normal S2, without murmur Abdomen: soft, non-tender Extremities: clear Neurological: no change Internal Medicine Assmt/Plan - Assessment Assessment: 1.HTN. 2.CAD. 3.CHF. 4.PSYCHOSIS. - Plan Plan: CONTINUE ON CURRENT MEDICATION AND DIET. Nutritional Asmnt/Malnutr-PDOC - Dietary Evaluation Malnutrition Findings (Please click <Entered> for more info): Nutritional Asmnt/Malnutrition Start: 07/03/17 19: 56 Text: Status: Complete Freq: Document 07/03/17 19:56 [facility] (Rec: 07/03/17 20:00 [facility] [id number]) Nutritional Asmnt/Malnutrition Patient General Information Nutritional Screening Moderate Risk Screening Diagnosis Psychosis Pertinent Medical Hx/Surgical Hx CAD, HTN, COPD, hyperlipidemia , CABG, ICD placement, psychosis Subjective Information Pt is a 66-year-old male admitted with chief complaint of paranoia. Per RN notes, pt is confused, aggressive, and easily irritable. Current Diet Order/ Nutrition Support Low sodium 1500 ml fluid restriction Patient / S.O Can't verbalize diet edu Pertinent Medications Theragran Pertinent Labs Reviewed Nutritional Hx/Data Height 1.78 m Height (Calculated Centimeters) 177.8 Current Weight (lbs) 86.183 kg Weight (Calculated Kilograms) 86.2 Weight (Calculated Grams) 85247.6 [place] Body Weight 166 % [place] Body Weight 115 Weight Status Overweight GI Symptoms GI Symptoms None Food Allergies No Skin Integrity/Comment: Lisandro Benjamin, skin intact. Current %PO Good (75-100%) Estimated Nutritional Goals BEE in Kcals: Using Current wt Calories/Kcals/Kg Based on current wt 86.4 kg with consideration of wheelchair-bound status Kcals Calculated 2672-9674 kcals/day (20-25 kcals/kg) Protein: Using Current wt Protein g/kg: Based on current wt 86.4 kg with consideration of wheelchair-bound status Protein Calculated 86 gm/day (1 gm/kg) Fluid: ml Per MD/DO due to fluid restriction. Nutritional Problem 1. Problem Problem No nutritional problems at this time. Malnutrition Alert Protein-Calorie Malnutrition N/A Is there a minimum of two criteria No selected? Query Text:Check all the applicable criteria. A minimum of two criteria are recommended for diagnosis of either severe or non-severe malnutrition. Malnutrition Related to Morbid Obesity Malnutrition related to morbid obesity No Intervention/Recommendation Comments 1. Continue with current diet as tolerated. Fluid restriction per MD/DO. Expected Outcomes/Goals Expected Outcomes/Goals Have pt meet at least 75% of estimated nutritional needs.
[2017-07-09] MEDS: Aspirin 81mg Chewable Tab PO SCH (09:59)
[2017-07-09] MEDS: Multivitamin Tab PO SCH (10:00)
--- NOTE | 2017-07-09 19:26 | Progress Notes ---
DATE: 07/09/2017 SUBJECTIVE: Chart reviewed and the patient interviewed. Also discussed the patient's condition with the staff and reviewed records and labs. The patient is still anxious and in irritable mood. The patient also still having mood swings. The patient also is still suspicious and paranoid and having episodes of anger and irritability, also needs lots of redirections. Otherwise, the patient is compliant with taking medications with no side effects of medications. ASSESSMENT: The patient is still psychotic. TREATMENT PLAN: Continue current medications. Discussed with outsole casersales and production manager issue and waiting for interview with either or [facility] for placement there. Otherwise, we will continue monitoring his behavior and we will continue to follow up. JOB# [id number]
--- NOTE | 2017-07-09 20:39 | Internal Medicine Prog Note ---
Internal Medicine Subjective - Subjective Service Date: 07/09/17 Patient seen and examined:: without staff Patient is:: awake, verbal (HE DENIES ANY CHEST PAIN.), in bed, denies any new complaints Per staff patient has:: no adverse event (HE DENIES ANY CHES T PAIN OR SOB.) Internal Medicine Objective - Physical Exam Vitals and I&O: Vital Signs Temp 98.2 F 07/09/17 19:59 Pulse 69 07/09/17 19:59 Resp 18 07/09/17 19:59 BP 120/65 07/09/17 19:59 Pulse Ox 96 07/09/17 19:59 Intake & Output 07/09/17 07/09/17 07/10/17 06:59 18:59 06:59 Intake Total 800 Balance 800 Intake: Oral 800 Other: # Voids 2 3 # Bowel Movements 1 0 Active Medications: Current Medications Acetaminophen (Tylenol) 650 mg PO Q4HR PRN PRN Reason: Mild Pain / Temp above 100 Stop: 08/26/17 22:00 Last Admin: 06/29/17 08:27 Dose: 650 mg Acetaminophen (Tylenol) 650 mg PO Q6HR PRN PRN Reason: Pain (Mild) Stop: 08/27/17 00:54 Al Hydrox/Mg Hydrox/Simethicone (Maalox) 30 ml PO Q4HR PRN PRN Reason: GI DISTRESS Stop: 08/26/17 22:00 Aspirin (Aspirin Chewable) 81 mg PO DAILY [facility] Stop: 08/27/17 08:59 Last Admin: 07/09/17 09:59 Dose: 81 mg Atorvastatin Calcium (Lipitor) 40 mg PO DAILY [facility] Stop: 08/27/17 08:59 Last Admin: 07/09/17 09:59 Dose: 40 mg Clonazepam (Klonopin) 0.5 mg PO BID [facility] PRN Reason: Protocol Stop: 09/03/17 16:59 Last Admin: 07/09/17 16:54 Dose: 0.5 mg Furosemide (Lasix) 40 mg PO DAILY [facility] Stop: 08/27/17 08:59 Last Admin: 07/09/17 10:00 Dose: 40 mg Lorazepam (Ativan) 0.5 mg PO Q4HR PRN; Protocol PRN Reason: Agitation Stop: 07/27/17 22:00 Last Admin: 07/04/17 20:23 Dose: 0.5 mg Magnesium Hydroxide (Milk Of Magnesia) 30 ml PO HS PRN PRN Reason: Constipation Metoprolol Tartrate (Lopressor) 25 mg PO BID [facility] Stop: 08/27/17 08:59 Last Admin: 07/09/17 17:18 Dose: Not Given Multivitamins/Vitamin C (Theragran) 1 tab PO DAILY [facility] Stop: 08/27/17 08:59 Last Admin: 07/09/17 10:00 Dose: 1 tab Quetiapine Fumarate (Seroquel) 200 mg PO TID [facility] PRN Reason: Protocol Stop: 08/30/17 08:59 Last Admin: 07/09/17 20:09 Dose: 200 mg Zolpidem Tartrate (Ambien) 5 mg PO HS PRN PRN Reason: Insomnia Stop: 08/26/17 22:00 Last Admin: 07/06/17 00:28 Dose: 5 mg General: alert HEENT: NC/AT, PERRLA, EOMI, anicteric sclerae, throat clear Neck: Supple, No JVD, No thyromegaly, +2 carotid pulse wo bruit, No LAD Lungs: CTAB Cardiovascular: RRR, Normal S1, Normal S2, without murmur Abdomen: soft, non-tender Extremities: clear Neurological: no change Internal Medicine Assmt/Plan - Assessment Assessment: 1.HTN. 2.CAD. 3.CHF. 4.PSYCHOSIS. - Plan Plan: CONTINUE ON CURRENT MEDICATION AND DIET. Nutritional Asmnt/Malnutr-PDOC - Dietary Evaluation Malnutrition Findings (Please click <Entered> for more info): Nutritional Asmnt/Malnutrition Start: 07/03/17 19: 56 Text: Status: Complete Freq: Document 07/03/17 19:56 [facility] (Rec: 07/03/17 20:00 [facility] [id number]) Nutritional Asmnt/Malnutrition Patient General Information Nutritional Screening Moderate Risk Screening Diagnosis Psychosis Pertinent Medical Hx/Surgical Hx CAD, HTN, COPD, hyperlipidemia , CABG, ICD placement, psychosis Subjective Information Pt is a 66-year-old male admitted with chief complaint of paranoia. Per RN notes, pt is confused, aggressive, and easily irritable. Current Diet Order/ Nutrition Support Low sodium 1500 ml fluid restriction Patient / S.O Can't verbalize diet edu Pertinent Medications Theragran Pertinent Labs Reviewed Nutritional Hx/Data Height 1.78 m Height (Calculated Centimeters) 177.8 Current Weight (lbs) 86.183 kg Weight (Calculated Kilograms) 86.2 Weight (Calculated Grams) 72497.6 [place] Body Weight 166 % [place] Body Weight 115 Weight Status Overweight GI Symptoms GI Symptoms None Food Allergies No Skin Integrity/Comment: Lisandro Benjamin, skin intact. Current %PO Good (75-100%) Estimated Nutritional Goals BEE in Kcals: Using Current wt Calories/Kcals/Kg Based on current wt 86.4 kg with consideration of wheelchair-bound status Kcals Calculated 4910-4653 kcals/day (20-25 kcals/kg) Protein: Using Current wt Protein g/kg: Based on current wt 86.4 kg with consideration of wheelchair-bound status Protein Calculated 86 gm/day (1 gm/kg) Fluid: ml Per MD/DO due to fluid restriction. Nutritional Problem 1. Problem Problem No nutritional problems at this time. Malnutrition Alert Protein-Calorie Malnutrition N/A Is there a minimum of two criteria No selected? Query Text:Check all the applicable criteria. A minimum of two criteria are recommended for diagnosis of either severe or non-severe malnutrition. Malnutrition Related to Morbid Obesity Malnutrition related to morbid obesity No Intervention/Recommendation Comments 1. Continue with current diet as tolerated. Fluid restriction per MD/DO. Expected Outcomes/Goals Expected Outcomes/Goals Have pt meet at least 75% of estimated nutritional needs.
[2017-07-10] MEDS: Multivitamin Tab PO SCH (08:46)
[2017-07-10] MEDS: Aspirin 81mg Chewable Tab PO SCH (08:47)
--- NOTE | 2017-07-10 19:09 | Internal Medicine Prog Note ---
Internal Medicine Subjective - Subjective Service Date: 07/10/17 Patient seen and examined:: without staff Patient is:: awake, verbal (HE DENIES ANY CHEST PAIN.), in bed, denies any new complaints Per staff patient has:: no adverse event (HE DENIES ANY CHES T PAIN OR SOB.) Internal Medicine Objective - Physical Exam Vitals and I&O: Vital Signs Temp 98.1 F 07/10/17 14:00 Pulse 75 07/10/17 17:05 Resp 20 07/10/17 14:00 BP 110/53 07/10/17 17:05 Pulse Ox 96 07/10/17 14:00 Intake & Output 07/10/17 07/10/17 07/11/17 06:59 18:59 06:59 Intake Total 120 960 Balance 120 960 Weight (lbs) 89.993 kg Intake: Oral 120 960 Other: # Voids 3 4 # Bowel Movements 1 Active Medications: Current Medications Acetaminophen (Tylenol) 650 mg PO Q4HR PRN PRN Reason: Mild Pain / Temp above 100 Stop: 08/26/17 22:00 Last Admin: 06/29/17 08:27 Dose: 650 mg Acetaminophen (Tylenol) 650 mg PO Q6HR PRN PRN Reason: Pain (Mild) Stop: 08/27/17 00:54 Al Hydrox/Mg Hydrox/Simethicone (Maalox) 30 ml PO Q4HR PRN PRN Reason: GI DISTRESS Stop: 08/26/17 22:00 Aspirin (Aspirin Chewable) 81 mg PO DAILY [facility] Stop: 08/27/17 08:59 Last Admin: 07/10/17 08:47 Dose: 81 mg Atorvastatin Calcium (Lipitor) 40 mg PO DAILY [facility] Stop: 08/27/17 08:59 Last Admin: 07/10/17 08:46 Dose: 40 mg Clonazepam (Klonopin) 0.5 mg PO BID [facility] PRN Reason: Protocol Stop: 09/03/17 16:59 Last Admin: 07/10/17 17:16 Dose: 0.5 mg Furosemide (Lasix) 40 mg PO DAILY [facility] Stop: 08/27/17 08:59 Last Admin: 07/10/17 08:46 Dose: 40 mg Lorazepam (Ativan) 0.5 mg PO Q4HR PRN; Protocol PRN Reason: Agitation Stop: 07/27/17 22:00 Last Admin: 07/10/17 13:06 Dose: 0.5 mg Magnesium Hydroxide (Milk Of Magnesia) 30 ml PO HS PRN PRN Reason: Constipation Metoprolol Tartrate (Lopressor) 25 mg PO BID [facility] Stop: 08/27/17 08:59 Last Admin: 07/10/17 17:05 Dose: Not Given Multivitamins/Vitamin C (Theragran) 1 tab PO DAILY [facility] Stop: 08/27/17 08:59 Last Admin: 07/10/17 08:46 Dose: 1 tab Quetiapine Fumarate (Seroquel) 200 mg PO TID [facility] PRN Reason: Protocol Stop: 08/30/17 08:59 Last Admin: 07/10/17 13:06 Dose: 200 mg Zolpidem Tartrate (Ambien) 5 mg PO HS PRN PRN Reason: Insomnia Stop: 08/26/17 22:00 Last Admin: 07/06/17 00:28 Dose: 5 mg General: alert HEENT: NC/AT, PERRLA, EOMI, anicteric sclerae, throat clear Neck: Supple, No JVD, No thyromegaly, +2 carotid pulse wo bruit, No LAD Lungs: CTAB Cardiovascular: RRR, Normal S1, Normal S2, without murmur Abdomen: soft, non-tender Extremities: clear Neurological: no change Internal Medicine Assmt/Plan - Assessment Assessment: 1.HTN. 2.CAD. 3.CHF. 4.PSYCHOSIS. - Plan Plan: CONTINUE ON CURRENT MEDICATION AND DIET. Nutritional Asmnt/Malnutr-PDOC - Dietary Evaluation Malnutrition Findings (Please click <Entered> for more info): Nutritional Asmnt/Malnutrition Start: 07/03/17 19: 56 Text: Status: Complete Freq: Document 07/03/17 19:56 [facility] (Rec: 07/03/17 20:00 [facility] [id number]) Nutritional Asmnt/Malnutrition Patient General Information Nutritional Screening Moderate Risk Screening Diagnosis Psychosis Pertinent Medical Hx/Surgical Hx CAD, HTN, COPD, hyperlipidemia , CABG, ICD placement, psychosis Subjective Information Pt is a 66-year-old male admitted with chief complaint of paranoia. Per RN notes, pt is confused, aggressive, and easily irritable. Current Diet Order/ Nutrition Support Low sodium 1500 ml fluid restriction Patient / S.O Can't verbalize diet edu Pertinent Medications Theragran Pertinent Labs Reviewed Nutritional Hx/Data Height 1.78 m Height (Calculated Centimeters) 177.8 Current Weight (lbs) 86.183 kg Weight (Calculated Kilograms) 86.2 Weight (Calculated Grams) 50742.6 [place] Body Weight 166 % [place] Body Weight 115 Weight Status Overweight GI Symptoms GI Symptoms None Food Allergies No Skin Integrity/Comment: Lisandro Benjamin, skin intact. Current %PO Good (75-100%) Estimated Nutritional Goals BEE in Kcals: Using Current wt Calories/Kcals/Kg Based on current wt 86.4 kg with consideration of wheelchair-bound status Kcals Calculated 7703-5773 kcals/day (20-25 kcals/kg) Protein: Using Current wt Protein g/kg: Based on current wt 86.4 kg with consideration of wheelchair-bound status Protein Calculated 86 gm/day (1 gm/kg) Fluid: ml Per MD/DO due to fluid restriction. Nutritional Problem 1. Problem Problem No nutritional problems at this time. Malnutrition Alert Protein-Calorie Malnutrition N/A Is there a minimum of two criteria No selected? Query Text:Check all the applicable criteria. A minimum of two criteria are recommended for diagnosis of either severe or non-severe malnutrition. Malnutrition Related to Morbid Obesity Malnutrition related to morbid obesity No Intervention/Recommendation Comments 1. Continue with current diet as tolerated. Fluid restriction per MD/DO. Expected Outcomes/Goals Expected Outcomes/Goals Have pt meet at least 75% of estimated nutritional needs.
--- NOTE | 2017-07-11 05:42 | Progress Notes ---
DATE: 07/10/2017 Case was discussed with staff of the patient, reviewed records. Covering for Dr. Simmons. The patient continues to isolate himself in the room, looking disheveled, easily agitated. He continues to have episodes of irritability, aggression. He is sleeping better, eating better. He is compliant with the medication with no side effects, no sedation, no nausea, and no extrapyramidal symptoms. He is on Seroquel 50 mg 3 times a day. We are working on discharge plans. We will continue the patient in group therapy, milieu therapy, and adjust medications as needed. JOB# [id number]
[2017-07-11] MEDS: Aspirin 81mg Chewable Tab PO SCH (10:00)
[2017-07-11] MEDS: Multivitamin Tab PO SCH (10:00)
[2017-07-11] MEDS ORDERED: chlorproMAZINE 25 mg/mL 2mL Amp IM ONE (16:00)
[2017-07-11] MEDS ORDERED: chlorproMAZINE 25 mg/mL 2mL Amp ONE (16:01)
--- NOTE | 2017-07-11 20:19 | Internal Medicine Prog Note ---
Internal Medicine Subjective - Subjective Service Date: 07/11/17 Patient seen and examined:: without staff Patient is:: awake, verbal (HE DENIES ANY CHEST PAIN.), in bed, denies any new complaints Per staff patient has:: no adverse event (HE DENIES ANY CHES T PAIN OR SOB.) Internal Medicine Objective - Physical Exam Vitals and I&O: Vital Signs Temp 97.8 F 07/11/17 16:44 Pulse 63 07/11/17 16:44 Resp 20 07/11/17 16:44 BP 119/51 07/11/17 16:44 Pulse Ox 98 07/11/17 16:44 Intake & Output 07/11/17 07/11/17 07/12/17 06:59 18:59 06:59 Intake Total 950 Balance 950 Intake: Oral 950 Other: # Voids 4 # Bowel Movements 0 Active Medications: Current Medications Acetaminophen (Tylenol) 650 mg PO Q4HR PRN PRN Reason: Mild Pain / Temp above 100 Stop: 08/26/17 22:00 Last Admin: 06/29/17 08:27 Dose: 650 mg Acetaminophen (Tylenol) 650 mg PO Q6HR PRN PRN Reason: Pain (Mild) Stop: 08/27/17 00:54 Al Hydrox/Mg Hydrox/Simethicone (Maalox) 30 ml PO Q4HR PRN PRN Reason: GI DISTRESS Stop: 08/26/17 22:00 Aspirin (Aspirin Chewable) 81 mg PO DAILY [facility] Stop: 08/27/17 08:59 Last Admin: 07/11/17 10:00 Dose: 81 mg Atorvastatin Calcium (Lipitor) 40 mg PO DAILY [facility] Stop: 08/27/17 08:59 Last Admin: 07/11/17 09:58 Dose: 40 mg Clonazepam (Klonopin) 0.5 mg PO BID [facility] PRN Reason: Protocol Stop: 09/03/17 16:59 Last Admin: 07/11/17 17:41 Dose: 0.5 mg Furosemide (Lasix) 40 mg PO DAILY [facility] Stop: 08/27/17 08:59 Last Admin: 07/11/17 09:59 Dose: 40 mg Lorazepam (Ativan) 0.5 mg PO Q4HR PRN; Protocol PRN Reason: Agitation Stop: 07/27/17 22:00 Last Admin: 07/10/17 13:06 Dose: 0.5 mg Magnesium Hydroxide (Milk Of Magnesia) 30 ml PO HS PRN PRN Reason: Constipation Metoprolol Tartrate (Lopressor) 25 mg PO BID [facility] Stop: 08/27/17 08:59 Last Admin: 07/11/17 17:41 Dose: Not Given Multivitamins/Vitamin C (Theragran) 1 tab PO DAILY [facility] Stop: 08/27/17 08:59 Last Admin: 07/11/17 10:00 Dose: 1 tab Quetiapine Fumarate (Seroquel) 200 mg PO TID [facility] PRN Reason: Protocol Stop: 08/30/17 08:59 Last Admin: 07/11/17 16:01 Dose: Not Given Zolpidem Tartrate (Ambien) 5 mg PO HS PRN PRN Reason: Insomnia Stop: 08/26/17 22:00 Last Admin: 07/06/17 00:28 Dose: 5 mg General: alert HEENT: NC/AT, PERRLA, EOMI, anicteric sclerae, throat clear Neck: Supple, No JVD, No thyromegaly, +2 carotid pulse wo bruit, No LAD Lungs: CTAB Cardiovascular: RRR, Normal S1, Normal S2, without murmur Abdomen: soft, non-tender Extremities: clear Neurological: no change Internal Medicine Assmt/Plan - Assessment Assessment: 1.HTN. 2.CAD. 3.CHF. 4.PSYCHOSIS. - Plan Plan: CONTINUE ON CURRENT MEDICATION AND DIET. Nutritional Asmnt/Malnutr-PDOC - Dietary Evaluation Malnutrition Findings (Please click <Entered> for more info): Nutritional Asmnt/Malnutrition Start: 07/03/17 19: 56 Text: Status: Complete Freq: Document 07/03/17 19:56 [facility] (Rec: 07/03/17 20:00 [facility] [id number]) Nutritional Asmnt/Malnutrition Patient General Information Nutritional Screening Moderate Risk Screening Diagnosis Psychosis Pertinent Medical Hx/Surgical Hx CAD, HTN, COPD, hyperlipidemia , CABG, ICD placement, psychosis Subjective Information Pt is a 66-year-old male admitted with chief complaint of paranoia. Per RN notes, pt is confused, aggressive, and easily irritable. Current Diet Order/ Nutrition Support Low sodium 1500 ml fluid restriction Patient / S.O Can't verbalize diet edu Pertinent Medications Theragran Pertinent Labs Reviewed Nutritional Hx/Data Height 1.78 m Height (Calculated Centimeters) 177.8 Current Weight (lbs) 86.183 kg Weight (Calculated Kilograms) 86.2 Weight (Calculated Grams) 33614.6 [place] Body Weight 166 % [place] Body Weight 115 Weight Status Overweight GI Symptoms GI Symptoms None Food Allergies No Skin Integrity/Comment: Lisandro Benjamin, skin intact. Current %PO Good (75-100%) Estimated Nutritional Goals BEE in Kcals: Using Current wt Calories/Kcals/Kg Based on current wt 86.4 kg with consideration of wheelchair-bound status Kcals Calculated 1002-1197 kcals/day (20-25 kcals/kg) Protein: Using Current wt Protein g/kg: Based on current wt 86.4 kg with consideration of wheelchair-bound status Protein Calculated 86 gm/day (1 gm/kg) Fluid: ml Per MD/DO due to fluid restriction. Nutritional Problem 1. Problem Problem No nutritional problems at this time. Malnutrition Alert Protein-Calorie Malnutrition N/A Is there a minimum of two criteria No selected? Query Text:Check all the applicable criteria. A minimum of two criteria are recommended for diagnosis of either severe or non-severe malnutrition. Malnutrition Related to Morbid Obesity Malnutrition related to morbid obesity No Intervention/Recommendation Comments 1. Continue with current diet as tolerated. Fluid restriction per MD/DO. Expected Outcomes/Goals Expected Outcomes/Goals Have pt meet at least 75% of estimated nutritional needs.
[2017-07-12] MEDS: Multivitamin Tab PO SCH (09:50)
[2017-07-12] MEDS: Aspirin 81mg Chewable Tab PO SCH (09:50)
--- NOTE | 2017-07-12 10:50 | Progress Notes ---
DATE: SUBJECTIVE: Case was discussed with staff of the patient, reviewed records. The patient is in a wheelchair, mumbling speech, very hard to understand, unpredictable, impulsive and needing redirection, internally preoccupied. Unable to make safe plan for self-care. She is compliant with the medication with no side effects, no sedation, no nausea, no extrapyramidal symptoms. We will continue the patient in group therapy, milieu therapy, adjust the medication as needed. [facility]# [id number]
--- NOTE | 2017-07-13 01:21 | Progress Notes ---
DATE: 07/12/[address] Simmons. Case was discussed with staff of the patient, reviewed records. The patient apparently was agitated earlier today and apparently the nurse who examined him found that his eyes are not equal. Dr. Tatum ordered a stat CT scan and decided that the patient needs to move to Med/Surg. At this point, we will continue with the patient in group therapy, milieu therapy, adjust medications as needed. JOB# [id number]
--- NOTE | 2017-07-14 09:18 | Diagnostic Imaging Report ---
CT scan of the brain without intravenous contrast HISTORY: Arrhythmia Total DLP equals 426 CTDI equals 43.1 Axial sections were obtained from the base of the skull to the vertex. There is prominence/enlargement of the ventricular system size. Associated enlargement of cerebral sulci and subarachnoid cisterns. Findings are consistent with changes of generalized cerebral atrophy. No acute parenchymal abnormalities. No acute cerebral hemorrhage. Hypodensity is seen within the supratentorial white matter regions without mass effect. The findings may be associated with chronic small vessel ischemic disease. No extra-axial masses or abnormal fluid collections. IMPRESSION: 1. No acute abnormalities 2. Cerebral atrophy 3. Supratentorial white matter changes that may reflect chronic small vessel ischemic disease
== END 2017-07-12 10:45 | DRG 885 ==
LOC: GERO 19:55
PROVIDERS: ADMIT Psychiatry & Neurology Psychiatry; ATTEND Psychiatry & Neurology Psychiatry
DX: F29 Unspecified psychosis not due to a substance or known physiological condition (principal); F03.91 Unspecified dementia, unspecified severity, with behavioral disturbance; I50.9 Heart failure, unspecified; I11.0 Hypertensive heart disease with heart failure; J44.9 Chronic obstructive pulmonary disease, unspecified; I25.10 Atherosclerotic heart disease of native coronary artery without angina pectoris; Z95.1 Presence of aortocoronary bypass graft; Z95.810 Presence of automatic (implantable) cardiac defibrillator; Z87.891 Personal history of nicotine dependence
CPT/HCPCS: 70450-TC; J1200; J1630; J2060; J3230; Z7610

== ENCOUNTER 2017-07-12 10:45 | Inpatient (IN) | payer MEDICARE, MEDICAID ==
[2017-07-12] MEDS ORDERED: Magnesium Hydroxide (MOM) 30 mL UDC PO PRN (12:02)
[2017-07-12] MEDS ORDERED: Maalox 30 mL Cup PO PRN (12:02)
[2017-07-12 12:14] LABS: % BASOPHILS 1.1 % (0.0-2.0); % EOSINOPHILS 9.1 % (0.0-5.0); % LYMPHOCYTES 13.9 % (20.0-50.0); % MONOCYTES 10.3 % (2.0-10.0); % NEUTROPHILS 65.6 % (40.0-80.0); HEMOGLOBIN 15.4 gm/dL (12.6-17.4); MEAN CELL VOLUME 90.7 fl (80-99); MEAN CORPUSCULAR HGB CONC 34.2 pg (28.0-36.0); MEAN PLATELET VOLUME 9.8 fl; NEUTROPHILE ABSOLUTE 5.9 Th/cmm (1.8-8.0); PLATELET COUNT 131 Th/cmm (150-400); RED BLOOD COUNT 4.96 Mil/cmm (3.80-5.80); RED CELL DISTRIBUTION WIDTH 14.2 % (11.5-20.0); WHITE BLOOD COUNT 8.9 Th/cmm (4.8-10.8)
[2017-07-12 12:29] LABS: ANION GAP 7.6 (7.0-16.0); BUN/CREATININE RATIO 21.3; CARBON DIOXIDE 25.4 mEq/L (21.0-31.0); CREATININE - SERUM 1.5 mg/dL (0.7-1.3)
[2017-07-12] MEDS: D5-0.45NS 1,000 ML IV SCH (13:28)
--- NOTE | 2017-07-12 14:01 | History & Physical ---
ADMIT DATE: 07/12/2017 CHIEF COMPLAINT: Altered level of consciousness. HISTORY OF PRESENT ILLNESS: The patient is a 66-year-old male with long history of coronary artery disease, CHF, hypertension, psychosis, resident at [facility], transferred to telemetry with altered level of consciousness and unequal pupil. The patient admitted to the telemetry, started on IV fluids. CT of the head ordered. When I saw the patient, he was eating, so he was awake, alert. He denies any weakness. He said that this pupil not equal for the last 2 years, possibly from previous damage. No nausea, no vomiting. No blurring of vision. No ____. PAST MEDICAL HISTORY: Significant for hypertension, coronary artery disease, CHF, psychosis. PAST SURGICAL HISTORY: No recent surgery. ALLERGIES: None. MEDICATIONS: Follow admission reconciliation. SOCIAL HISTORY: No smoking, alcohol or drugs. FAMILY HISTORY: Noncontributory. REVIEW OF SYSTEMS: RENAL SYSTEM: No history of chronic renal disorder. CARDIOVASCULAR SYSTEM: He has history of coronary artery disease, hypertension, CHF. ENDOCRINE SYSTEM: No diabetes or thyroid problem. GASTROINTESTINAL SYSTEM: No upper or lower gastrointestinal bleed. NEUROLOGICAL: He has history of psychosis. PHYSICAL EXAMINATION: GENERAL: He is awake, alert, oriented. VITAL SIGNS: Temperature is 98, heart rate 88, blood pressure 136/70. HEENT: Normocephalic. Pupil on the right side is more than 2 mm ____ reactive to light and accommodation. Left side is less than 2 mm, not reactive to light and accommodation. Sclerae clear. NECK: Supple. Negative for lymphadenopathy, JVD or bruit. CHEST: Bilateral normal. No rhonchi or wheezing. HEART: S1, S2 normal, no gallop. ABDOMEN: Soft, bowel sounds positive. EXTREMITIES: No edema. NEUROLOGIC: Awake, alert, oriented. No focal motor or sensory deficit. ASSESSMENT: 1. Altered level of consciousness. 2. Coronary artery disease. 3. Congestive heart failure. 4. Hypertension. 5. Psychosis. PLAN: The patient admitted to telemetry, started on his diet. The patient's medications were resumed. CT of the head ordered. JOB# [id number]
[2017-07-12 15:03] VITALS: BP 129/92
--- NOTE | 2017-07-13 04:25 | Admit Criteria Form ---
Admit Criteria Forms - Admit Criteria Diagnosis: MENTAL STATUS CHANGE Clinical Indications for Inpatient Care (Place 'X' for any and all applicable criteria): Ongoing inpatient care may be needed for 1 or more of the following(1)(2)(3)(5)( 6): [X ]I. Suspected serious etiology (eg, medical disorder, HYDRAULICS TEACHER event) of altered mental status [ ]II. Danger to self or others not manageable at lower level of care [ ]III. Grave disability (eg, inability to perform self care necessary at lower level of care) [ ]IV. Agitation or inappropriate behavior interfering with care for primary condition (eg, attempting to discontinue lines or drains prematurely, unable to cooperate with respiratory care) [ ]V. Delirium [A] [D][E] as described by 1 or more of the following(26): [ ]a) Delirium due to alcohol or sedative [F] withdrawal [ ]b) Delirium of uncertain etiology that has not responded to appropriate empiric treatment [ ]c) Delirium that prevents performance of a life-sustaining function (eg, feeding or hydrating oneself) [ X]. General contraindications and/or Inappropriate clinical situations for Observational Care in patients with Mental Status Change, when ANY ONE of the following is required: [X ]a) Prediction of prolongation of LOS based on ANY ONE of the following may be considered as a contraindication for observational care 2, 3, 4, 5, 6, 7, 8, 9, 10, 11 [X ]i) Age > 65 yrs. [ ]ii) Patient arriving by ambulance [ ]iii) Patient with high acuity [ ]iv) Patient requiring vital sign monitoring [ ]v) Patient on IV medication [ ]b) Systolic blood pressures greater than or equal to 180mmHg 3, 12 [ ]c) Patient with altered mental status including delirium and other alteration of consciousness, (3) [ ]d) Patient whose discharge disposition will be to a custodial home or rehabilitation home should not be managed in Emergency Department Observation Unit. CMS rule requires 3 days hospital stay before such placement.3,13 [ ]e) Patient with failure to thrive due to broad array of etiologies 3,16,17 [ ]f) Inability to ambulate 3,14 Extended stay beyond goal length of stay for the primary condition may be needed until ALL of the following are present(3)(5): [ ]a) Underlying medical etiology of mental status change is absent, or has been established and adequately treated [ ]b) Danger to self or others is absent or manageable at lower level of care. [ ]c) Behavior crisis management, including physical or chemical restraints, is not required or available at lower level of car [ ]d) Substance or alcohol withdrawal is absent or manageable at lower level of care. [ ]e) Behavioral symptoms (eg, agitation, somnolence, inappropriate behavior) are absent, or are manageable at lower level of care. The original [facility] content created by [facility] has been revised. The portions of the content which have been revised are identified through the use of italic text or in bold, and [facility] has neither reviewed nor approved the modified material. All other unmodified content is copyright [facility]. Please see references footnoted in the original [facility] edition 2016 Admit Criteria Met?: Yes
[2017-07-13] MEDS: Multivitamin Tab PO SCH (08:41)
[2017-07-13] MEDS: Aspirin 81mg Chewable Tab PO SCH (08:41)
[2017-07-13] MEDS: D5-0.45NS 1,000 ML IV SCH (10:34)
--- NOTE | 2017-07-13 20:51 | Internal Medicine Prog Note ---
Internal Medicine Subjective - Subjective Service Date: 07/13/17 Patient seen and examined:: with staff Patient is:: awake, verbal, in bed Per staff patient has:: no adverse event Internal Medicine Objective - Results Result Diagrams: 07/12/17 12:10 07/12/17 12:10 Recent Labs: Laboratory Last Values WBC 8.9 Th/cmm (4.8-10.8) 07/12/17 12:10 RBC 4.96 Mil/cmm (3.80-5.80) 07/12/17 12:10 Hgb 15.4 gm/dL (12.6-17.4) 07/12/17 12:10 Hct 45.0 % (39.0-49.0) 07/12/17 12:10 MCV 90.7 fl (80-99) 07/12/17 12:10 MCH 31.0 pg (27.0-31.0) 07/12/17 12:10 MCHC Differential 34.2 pg (28.0-36.0) 07/12/17 12:10 RDW 14.2 % (11.5-20.0) 07/12/17 12:10 Plt Count 131 Th/cmm (150-400) L 07/12/17 12:10 MPV 9.8 fl 07/12/17 12:10 Neutrophils % 65.6 % (40.0-80.0) 07/12/17 12:10 Lymphocytes % 13.9 % (20.0-50.0) L 07/12/17 12:10 Monocytes % 10.3 % (2.0-10.0) H 07/12/17 12:10 Eosinophils % 9.1 % (0.0-5.0) H 07/12/17 12:10 Basophils % 1.1 % (0.0-2.0) 07/12/17 12:10 Sodium 133 mEq/L (136-145) L 07/12/17 12:10 Potassium 4.0 mEq/L (3.5-5.1) 07/12/17 12:10 Chloride 104 mEq/L (98-107) 07/12/17 12:10 Carbon Dioxide 25.4 mEq/L (21.0-31.0) 07/12/17 12:10 Anion Gap 7.6 (7.0-16.0) 07/12/17 12:10 BUN 32 mg/dL (7-25) H 07/12/17 12:10 Creatinine 1.5 mg/dL (0.7-1.3) H 07/12/17 12:10 Est GFR ( Amer) 59.9 ml/min (>90) 07/12/17 12:10 Est GFR (Non-Af Amer) 49.5 ml/min 07/12/17 12:10 BUN/Creatinine Ratio 21.3 07/12/17 12:10 Glucose 106 mg/dL (70-105) H 07/12/17 12:10 Calcium 10.0 mg/dL (8.6-10.3) 07/12/17 12:10 - Physical Exam Vitals and I&O: Vital Signs Temp 98.2 F 07/13/17 16:00 Pulse 76 07/13/17 16:22 Resp 18 07/13/17 18:33 BP 130/85 07/13/17 16:22 Pulse Ox 94 07/13/17 16:00 Intake & Output 07/13/17 07/13/17 07/14/17 06:59 18:59 06:59 Intake Total 1111.25 750 Output Total 100 1000 Balance 1011.25 -250 Weight (lbs) 90.718 kg 90.718 kg Intake: Intake, IV Amount 631.25 D5-0.45NS 1,000 ml @ 75 631.25 mls/hr IV .[id number] [facility] Rx #:[id number] Oral 480 750 Output: Urine 100 1000 Other: # Voids 1 # Bowel Movements 0 Active Medications: Current Medications Acetaminophen (Tylenol) 650 mg PO Q4HR PRN PRN Reason: Mild Pain / Temp above 100 Stop: 09/10/17 12:01 Last Admin: 07/12/17 16:44 Dose: 650 mg Al Hydrox/Mg Hydrox/Simethicone (Maalox) 30 ml PO Q4HR PRN PRN Reason: GI DISTRESS Stop: 09/10/17 12:01 Aspirin (Aspirin Chewable) 81 mg PO DAILY [facility] Stop: 09/11/17 08:59 Last Admin: 07/13/17 08:41 Dose: 81 mg Atorvastatin Calcium (Lipitor) 40 mg PO DAILY [facility] PRN Reason: Protocol Stop: 09/11/17 08:59 Last Admin: 07/13/17 08:40 Dose: 40 mg Clonazepam (Klonopin) 0.5 mg PO BID [facility] PRN Reason: Protocol Stop: 09/10/17 16:59 Furosemide (Lasix) 40 mg PO DAILY [facility] Stop: 09/11/17 08:59 Last Admin: 07/13/17 08:38 Dose: 40 mg Dextrose/Sodium Chloride (D5-0.45ns) 1,000 mls @ 75 mls/hr IV .[id number] [facility] Stop: 09/10/17 12:01 Last Admin: 07/13/17 10:34 Dose: 75 mls/hr Lisinopril (Zestril) 2.5 mg PO DAILY [facility] Stop: 09/11/17 08:59 Last Admin: 07/13/17 08:41 Dose: 2.5 mg Lorazepam (Ativan) 0.5 mg PO Q4HR PRN; Protocol PRN Reason: Agitation Stop: 09/10/17 12:01 Last Admin: 07/12/17 22:00 Dose: 0.5 mg Magnesium Hydroxide (Milk Of Magnesia) 30 ml PO HS PRN PRN Reason: Constipation Stop: 09/10/17 12:01 Metoprolol Tartrate (Lopressor) 25 mg PO BID [facility] Stop: 09/10/17 16:59 Last Admin: 07/13/17 16:22 Dose: 25 mg Multivitamins/Vitamin C (Theragran) 1 tab PO DAILY [facility] Stop: 09/11/17 08:59 Last Admin: 07/13/17 08:41 Dose: 1 tab Quetiapine Fumarate (Seroquel) 200 mg PO TID [facility] PRN Reason: Protocol Stop: 09/10/17 13:59 Zolpidem Tartrate (Ambien) 5 mg PO HS PRN PRN Reason: Insomnia Stop: 09/10/17 12:01 Last Admin: 07/12/17 22:03 Dose: 5 mg General: demented HEENT: NC/AT, PERRLA, EOMI, anicteric sclerae, throat clear Neck: No JVD, No thyromegaly Lungs: CTAB Cardiovascular: Normal S1, Normal S2 Abdomen: non-tender, non-distended Internal Medicine Assmt/Plan - Assessment Assessment: 1.HTN. 2.CAD. 3.PSYCHOSIS. - Plan Plan: COPNTINUE ON CURRENT MEDICATION AND DIET.
--- NOTE | 2017-07-14 05:28 | Consultation ---
DATE OF CONSULTATION: 07/13/2017 IDENTIFYING INFORMATION: The patient is a 66-year-old male. HISTORY OF PRESENT ILLNESS: This patient was transferred yesterday from [facility] because apparently he was found like was one side unresponsive and they were concerned of he was having a CVA with altered level of consciousness. The patient was admitted to telemetry, CT scan of the head ordered. The patient when see by Dr. Tatum, he was eating, he was awake, alert. Denies any weakness. His pupils are not equal for the last 2 years mostly from previous damage. When I talked to the patient, he was very irritable, not answering questions appropriately, pressured speech. He reported that he has a master's degree and has a degree in PEDRO and he would not take medication unless he needs it and he knows better about medication and apparently he has been refusing his Seroquel and Klonopin. PAST PSYCHIATRIC HISTORY: He was in [facility] because of his agitated behavior. He had to be medicated many times with a history of psychosis. MEDICAL HISTORY: As per Dr. Tatum, the patient has carotid artery disease, congestive heart failure, hypertension. ALLERGIES: He has no known drug allergies. MEDICATIONS: The patient has been on Seroquel at [facility] 200 mg 3 times a day as well as Klonopin 0.5 mg twice a day. FAMILY AND SOCIAL HISTORY: The patient reports that he is single, never . When I asked about children he started laughing. He denies substance abuse. He said he was [facility] and he was paid to do research on him. He denies any prior suicide attempt. He denies any family psychiatric disorder of suicide. No substance abuse. Denies having any legal problem. MENTAL STATUS EXAMINATION: The patient is appropriately dressed, not very well groomed. He was feeding himself. He was alert. He was able to tell me the date, where he is or why he is here. He was in denial about having any psychiatric issue. He was able to tell me the President of [facility]. Long and short term memory is intact. Insight and judgment is impaired. The patient denies any intent to harm himself or others. IMPRESSION: AXIS I: Psychosis, not otherwise specified, rule out bipolar disorder. MEDICAL DIAGNOSES: Deferred to Dr. Kadhium. I would recommend to continue medication and the patient may need to go back to [facility] when medically cleared. Thank you very much for allowing me to participate in the care of this most interesting gentleman. JOB# [id number]
[2017-07-14] MEDS: Aspirin 81mg Chewable Tab PO SCH (08:27)
[2017-07-14] MEDS: Multivitamin Tab PO SCH (08:27)
--- NOTE | 2017-07-14 17:18 | Internal Medicine Prog Note ---
Internal Medicine Subjective - Subjective Service Date: 07/14/17 Patient seen and examined:: with staff Patient is:: awake, verbal, in bed Per staff patient has:: no adverse event Internal Medicine Objective - Results Result Diagrams: 07/12/17 12:10 07/12/17 12:10 Recent Labs: Laboratory Last Values WBC 8.9 Th/cmm (4.8-10.8) 07/12/17 12:10 RBC 4.96 Mil/cmm (3.80-5.80) 07/12/17 12:10 Hgb 15.4 gm/dL (12.6-17.4) 07/12/17 12:10 Hct 45.0 % (39.0-49.0) 07/12/17 12:10 MCV 90.7 fl (80-99) 07/12/17 12:10 MCH 31.0 pg (27.0-31.0) 07/12/17 12:10 MCHC Differential 34.2 pg (28.0-36.0) 07/12/17 12:10 RDW 14.2 % (11.5-20.0) 07/12/17 12:10 Plt Count 131 Th/cmm (150-400) L 07/12/17 12:10 MPV 9.8 fl 07/12/17 12:10 Neutrophils % 65.6 % (40.0-80.0) 07/12/17 12:10 Lymphocytes % 13.9 % (20.0-50.0) L 07/12/17 12:10 Monocytes % 10.3 % (2.0-10.0) H 07/12/17 12:10 Eosinophils % 9.1 % (0.0-5.0) H 07/12/17 12:10 Basophils % 1.1 % (0.0-2.0) 07/12/17 12:10 Sodium 133 mEq/L (136-145) L 07/12/17 12:10 Potassium 4.0 mEq/L (3.5-5.1) 07/12/17 12:10 Chloride 104 mEq/L (98-107) 07/12/17 12:10 Carbon Dioxide 25.4 mEq/L (21.0-31.0) 07/12/17 12:10 Anion Gap 7.6 (7.0-16.0) 07/12/17 12:10 BUN 32 mg/dL (7-25) H 07/12/17 12:10 Creatinine 1.5 mg/dL (0.7-1.3) H 07/12/17 12:10 Est GFR ( Amer) 59.9 ml/min (>90) 07/12/17 12:10 Est GFR (Non-Af Amer) 49.5 ml/min 07/12/17 12:10 BUN/Creatinine Ratio 21.3 07/12/17 12:10 Glucose 106 mg/dL (70-105) H 07/12/17 12:10 Calcium 10.0 mg/dL (8.6-10.3) 07/12/17 12:10 - Physical Exam Vitals and I&O: Vital Signs Temp 97.3 F 07/14/17 17:12 Pulse 63 07/14/17 17:12 Resp 18 07/14/17 17:12 BP 129/79 07/14/17 17:12 Pulse Ox 95 07/14/17 17:12 Intake & Output 07/13/17 07/14/17 07/14/17 18:59 06:59 18:59 Intake Total 750 250 Output Total 1000 860 Balance -250 -610 Weight (lbs) 90.718 kg 90.129 kg 90.809 kg Intake: Oral 750 250 Output: Urine 1000 860 Other: # Voids 3 # Bowel Movements 0 0 Active Medications: Current Medications Acetaminophen (Tylenol) 650 mg PO Q4HR PRN PRN Reason: Mild Pain / Temp above 100 Stop: 09/10/17 12:01 Last Admin: 07/12/17 16:44 Dose: 650 mg Al Hydrox/Mg Hydrox/Simethicone (Maalox) 30 ml PO Q4HR PRN PRN Reason: GI DISTRESS Stop: 09/10/17 12:01 Aspirin (Aspirin Chewable) 81 mg PO DAILY [facility] Stop: 09/11/17 08:59 Last Admin: 07/14/17 08:27 Dose: 81 mg Atorvastatin Calcium (Lipitor) 40 mg PO DAILY [facility] PRN Reason: Protocol Stop: 09/11/17 08:59 Last Admin: 07/14/17 08:27 Dose: 40 mg Clonazepam (Klonopin) 0.5 mg PO BID [facility] PRN Reason: Protocol Stop: 09/10/17 16:59 Last Admin: 07/14/17 16:23 Dose: 0.5 mg Furosemide (Lasix) 40 mg PO DAILY [facility] Stop: 09/11/17 08:59 Last Admin: 07/14/17 08:27 Dose: 40 mg Dextrose/Sodium Chloride (D5-0.45ns) 1,000 mls @ 75 mls/hr IV .[id number] [facility] Stop: 09/10/17 12:01 Last Admin: 07/13/17 10:34 Dose: 75 mls/hr Lisinopril (Zestril) 2.5 mg PO DAILY [facility] Stop: 09/11/17 08:59 Last Admin: 07/14/17 08:28 Dose: 2.5 mg Lorazepam (Ativan) 0.5 mg PO Q4HR PRN; Protocol PRN Reason: Agitation Stop: 09/10/17 12:01 Last Admin: 07/13/17 21:35 Dose: 0.5 mg Magnesium Hydroxide (Milk Of Magnesia) 30 ml PO HS PRN PRN Reason: Constipation Stop: 09/10/17 12:01 Metoprolol Tartrate (Lopressor) 25 mg PO BID [facility] Stop: 09/10/17 16:59 Last Admin: 07/14/17 16:25 Dose: 25 mg Multivitamins/Vitamin C (Theragran) 1 tab PO DAILY [facility] Stop: 09/11/17 08:59 Last Admin: 07/14/17 08:27 Dose: 1 tab Quetiapine Fumarate (Seroquel) 200 mg PO TID [facility] PRN Reason: Protocol Stop: 09/10/17 13:59 Last Admin: 07/14/17 16:30 Dose: 200 mg Zolpidem Tartrate (Ambien) 5 mg PO HS PRN PRN Reason: Insomnia Stop: 09/10/17 12:01 Last Admin: 07/13/17 21:36 Dose: 5 mg General: demented HEENT: NC/AT, PERRLA, EOMI, anicteric sclerae, throat clear Neck: No JVD, No thyromegaly Lungs: CTAB Cardiovascular: Normal S1, Normal S2 Abdomen: non-tender, non-distended Internal Medicine Assmt/Plan - Assessment Assessment: 1.HTN. 2.CAD. 3.PSYCHOSIS. - Plan Plan: COPNTINUE ON CURRENT MEDICATION AND DIET.HE CAN BE DISCHARGED TO [facility]. Nutritional Asmnt/Malnutr-PDOC - Dietary Evaluation Malnutrition Findings (Please click <Entered> for more info): Nutritional Asmnt/Malnutrition Start: 07/14/17 15: 15 Text: Status: Complete Freq: Document 07/14/17 15:15 [email or web address] (Rec: 07/14/17 15:29 [email or web address]) Nutritional Asmnt/Malnutrition Patient General Information Nutritional Screening High Risk Screening Diagnosis ALOC, CAD, CHF, HTN, psychosis Pertinent Medical Hx/Surgical Hx CAD, CHF, HTN, psychosis Subjective Information 66 year old male, transfered from [facility]. Reason for visit: dehydration. Pt was slightly agitated during visit, did not provide much meaningful resposnses. Observed fluid restriction 1500ml on headabord. Pt is aware of fluid restriction and suspect it be the reason he was transfered. Spoke to ANIMAL CARE TECHNICIAN in room, ANIMAL CARE TECHNICIAN stated pt with good appetite, ate 100% fo breakfast today and asked for second tray. No muscle fat wasting noted. Spoke to RN Willian, RN aware of fluid restriction. Current Diet Order/ Nutrition Support Low sodum, fluid restriction 1500ml Pertinent Medications Lipitor, D5-0.45ns, Lasix, MOM , Theragran, Seroquel Pertinent Labs 07/12: BUN 32H, creatinine 1.5H Nutritional Hx/Data Height 1.78 m Height (Calculated Centimeters) 177.8 Current Weight (lbs) 90.809 kg Weight (Calculated Kilograms) 90.8 Weight (Calculated Grams) 50734.2 [place] Body Weight 166 Weight Status Overweight GI Symptoms Skin Integrity/Comment: Lisandro 20. SKin intact. Current %PO Good (75-100%) Estimated Nutritional Goals Calories/Kcals/Kg IBW 166lb/75.5kg Kcals Calculated 1888-2265kcal (25-30kcal/kg) Protein Calculated 76g (1g/kg() Fluid: ml 1888-2265ml (1ml/kcal) Nutritional Problem 1. Problem Problem Excessive fluid intake related to Etiology CHF aeb Signs/Symptoms: pt is on fluid restriction 1500ml per MD Intervention/Recommendation Comments 1. Continue with current diet order with fludi restriction 1500ml per MD. 2. Nursing staff to record all meal activities. Expected Outcomes/Goals Expected Outcomes/Goals 1. PO itnake conitnue to meet at least 75% of estimated nutritional needs.
--- NOTE | 2017-07-15 03:51 | Progress Notes ---
DATE: 07/14/2017 Case was discussed with staff of the patient, reviewed records. The patient continues to be irritable, continues to have poor insight. Continues to be unable to make safe plan for self-care, unpredictable, impulsive. He needs to go back to [facility] when medically. Thank you very much for allowing me to participate in the care of this most interesting gentleman. JOB# [id number]
[2017-07-15] MEDS: Aspirin 81mg Chewable Tab PO SCH (08:27)
[2017-07-15] MEDS: Multivitamin Tab PO SCH (08:28)
--- NOTE | 2017-07-15 20:23 | Internal Medicine Prog Note ---
Internal Medicine Subjective - Subjective Service Date: 07/15/17 Patient seen and examined:: with staff Patient is:: awake, verbal, in bed Per staff patient has:: no adverse event Internal Medicine Objective - Results Result Diagrams: 07/12/17 12:10 07/12/17 12:10 Recent Labs: Laboratory Last Values WBC 8.9 Th/cmm (4.8-10.8) 07/12/17 12:10 RBC 4.96 Mil/cmm (3.80-5.80) 07/12/17 12:10 Hgb 15.4 gm/dL (12.6-17.4) 07/12/17 12:10 Hct 45.0 % (39.0-49.0) 07/12/17 12:10 MCV 90.7 fl (80-99) 07/12/17 12:10 MCH 31.0 pg (27.0-31.0) 07/12/17 12:10 MCHC Differential 34.2 pg (28.0-36.0) 07/12/17 12:10 RDW 14.2 % (11.5-20.0) 07/12/17 12:10 Plt Count 131 Th/cmm (150-400) L 07/12/17 12:10 MPV 9.8 fl 07/12/17 12:10 Neutrophils % 65.6 % (40.0-80.0) 07/12/17 12:10 Lymphocytes % 13.9 % (20.0-50.0) L 07/12/17 12:10 Monocytes % 10.3 % (2.0-10.0) H 07/12/17 12:10 Eosinophils % 9.1 % (0.0-5.0) H 07/12/17 12:10 Basophils % 1.1 % (0.0-2.0) 07/12/17 12:10 Sodium 133 mEq/L (136-145) L 07/12/17 12:10 Potassium 4.0 mEq/L (3.5-5.1) 07/12/17 12:10 Chloride 104 mEq/L (98-107) 07/12/17 12:10 Carbon Dioxide 25.4 mEq/L (21.0-31.0) 07/12/17 12:10 Anion Gap 7.6 (7.0-16.0) 07/12/17 12:10 BUN 32 mg/dL (7-25) H 07/12/17 12:10 Creatinine 1.5 mg/dL (0.7-1.3) H 07/12/17 12:10 Est GFR ( Amer) 59.9 ml/min (>90) 07/12/17 12:10 Est GFR (Non-Af Amer) 49.5 ml/min 07/12/17 12:10 BUN/Creatinine Ratio 21.3 07/12/17 12:10 Glucose 106 mg/dL (70-105) H 07/12/17 12:10 Calcium 10.0 mg/dL (8.6-10.3) 07/12/17 12:10 - Physical Exam Vitals and I&O: Vital Signs Temp 98.2 F 07/15/17 17:04 Pulse 58 07/15/17 17:04 Resp 19 07/15/17 17:04 BP 94/61 07/15/17 17:04 Pulse Ox 96 07/15/17 17:04 Intake & Output 07/15/17 07/15/17 07/16/17 06:59 18:59 06:59 Intake Total 400 500 Output Total 960 Balance -560 500 Weight (lbs) 90.718 kg 90.718 kg Intake: Oral 400 500 Output: Urine 960 Other: # Voids 4 4 # Bowel Movements 0 1 Active Medications: Current Medications Acetaminophen (Tylenol) 650 mg PO Q4HR PRN PRN Reason: Mild Pain / Temp above 100 Stop: 09/10/17 12:01 Last Admin: 07/12/17 16:44 Dose: 650 mg Al Hydrox/Mg Hydrox/Simethicone (Maalox) 30 ml PO Q4HR PRN PRN Reason: GI DISTRESS Stop: 09/10/17 12:01 Aspirin (Aspirin Chewable) 81 mg PO DAILY BECKIE Stop: 09/11/17 08:59 Last Admin: 07/15/17 08:27 Dose: 81 mg Atorvastatin Calcium (Lipitor) 40 mg PO DAILY BECKIE PRN Reason: Protocol Stop: 09/11/17 08:59 Last Admin: 07/15/17 08:28 Dose: 40 mg Clonazepam (Klonopin) 0.5 mg PO BID BECKIE PRN Reason: Protocol Stop: 09/10/17 16:59 Last Admin: 07/15/17 16:34 Dose: 0.5 mg Furosemide (Lasix) 40 mg PO DAILY BECKIE Stop: 09/11/17 08:59 Last Admin: 07/15/17 08:27 Dose: 40 mg Dextrose/Sodium Chloride (D5-0.45ns) 1,000 mls @ 75 mls/hr IV .[id number] BECKIE Stop: 09/10/17 12:01 Last Admin: 07/13/17 10:34 Dose: 75 mls/hr Lisinopril (Zestril) 2.5 mg PO DAILY BECKIE Stop: 09/11/17 08:59 Last Admin: 07/15/17 08:28 Dose: 2.5 mg Lorazepam (Ativan) 0.5 mg PO Q4HR PRN; Protocol PRN Reason: Agitation Stop: 09/10/17 12:01 Last Admin: 07/14/17 21:21 Dose: 0.5 mg Magnesium Hydroxide (Milk Of Magnesia) 30 ml PO HS PRN PRN Reason: Constipation Stop: 09/10/17 12:01 Metoprolol Tartrate (Lopressor) 25 mg PO BID BECKIE Stop: 09/10/17 16:59 Last Admin: 07/15/17 16:33 Dose: 25 mg Multivitamins/Vitamin C (Theragran) 1 tab PO DAILY BECKIE Stop: 09/11/17 08:59 Last Admin: 07/15/17 08:28 Dose: 1 tab Quetiapine Fumarate (Seroquel) 200 mg PO TID BECKIE PRN Reason: Protocol Stop: 09/10/17 13:59 Last Admin: 07/15/17 16:37 Dose: 200 mg Zolpidem Tartrate (Ambien) 5 mg PO HS PRN PRN Reason: Insomnia Stop: 09/10/17 12:01 Last Admin: 07/14/17 21:21 Dose: 5 mg General: demented HEENT: NC/AT, PERRLA, EOMI, anicteric sclerae, throat clear Neck: No JVD, No thyromegaly Lungs: CTAB Cardiovascular: Normal S1, Normal S2 Abdomen: non-tender, non-distended Internal Medicine Assmt/Plan - Assessment Assessment: 1.HTN. 2.CAD. 3.PSYCHOSIS. - Plan Plan: COPNTINUE ON CURRENT MEDICATION AND DIET.HE CAN BE DISCHARGED TO [facility]. Nutritional Asmnt/Malnutr-PDOC - Dietary Evaluation Malnutrition Findings (Please click <Entered> for more info): Nutritional Asmnt/Malnutrition Start: 07/14/17 15: 15 Text: Status: Complete Freq: Document 07/14/17 15:15 [email or web address] (Rec: 07/14/17 15:29 [email or web address]) Nutritional Asmnt/Malnutrition Patient General Information Nutritional Screening High Risk Screening Diagnosis ALOC, CAD, CHF, HTN, psychosis Pertinent Medical Hx/Surgical Hx CAD, CHF, HTN, psychosis Subjective Information 66 year old male, transfered from [facility]. Reason for visit: dehydration. Pt was slightly agitated during visit, did not provide much meaningful resposnses. Observed fluid restriction 1500ml on headabord. Pt is aware of fluid restriction and suspect it be the reason he was transfered. Spoke to METAL MOLDER in room, METAL MOLDER stated pt with good appetite, ate 100% fo breakfast today and asked for second tray. No muscle fat wasting noted. Spoke to RN YANET Dorsey aware of fluid restriction. Current Diet Order/ Nutrition Support Low sodum, fluid restriction 1500ml Pertinent Medications Lipitor, D5-0.45ns, Lasix, MOM , Theragran, Seroquel Pertinent Labs 07/12: BUN 32H, creatinine 1.5H Nutritional Hx/Data Height 1.78 m Height (Calculated Centimeters) 177.8 Current Weight (lbs) 90.809 kg Weight (Calculated Kilograms) 90.8 Weight (Calculated Grams) 62153.2 [place] Body Weight 166 Weight Status Overweight GI Symptoms Skin Integrity/Comment: Lisandro 20. SKin intact. Current %PO Good (75-100%) Estimated Nutritional Goals Calories/Kcals/Kg IBW 166lb/75.5kg Kcals Calculated 1888-2265kcal (25-30kcal/kg) Protein Calculated 76g (1g/kg() Fluid: ml 1888-2265ml (1ml/kcal) Nutritional Problem 1. Problem Problem Excessive fluid intake related to Etiology CHF aeb Signs/Symptoms: pt is on fluid restriction 1500ml per MD Intervention/Recommendation Comments 1. Continue with current diet order with fludi restriction 1500ml per MD. 2. Nursing staff to record all meal activities. Expected Outcomes/Goals Expected Outcomes/Goals 1. PO itnake conitnue to meet at least 75% of estimated nutritional needs.
--- NOTE | 2017-07-16 00:39 | Progress Notes ---
DATE: 07/15/2017 Case was discussed with staff of the patient, reviewed records. The patient seems to be a bit calmer. He is sleeping better, eating better. He denies that he will harm himself or anybody. He is compliant with the medication with no side effects, no sedation, no nausea, and no extrapyramidal symptoms. Thank you very much for allowing me to participate in the care of this most interesting gentleman. If getting agitated, we have to transfer back to [facility]. JOB# [id number]
[2017-07-16] MEDS: Multivitamin Tab PO SCH (09:10)
[2017-07-16] MEDS: Aspirin 81mg Chewable Tab PO SCH (09:11)
--- NOTE | 2017-07-17 02:32 | Progress Notes ---
DATE: 07/16/2017 Case was discussed with staff of the patient, reviewed records. The patient ____. In general, sleeping better, eating better. No suicidal ideation or homicidal ideation. No paranoia. The patient ____, may need to go back to [facility]. Thank you very much for allowing me to participate in the care of this most interesting gentleman. JOB# [id number]
--- NOTE | 2017-07-24 22:20 | Discharge Summary ---
DATE OF DISCHARGE: 07/16/2017 FINAL DIAGNOSES: 1. Metabolic encephalopathy. 2. Coronary artery disease. 3. Chronic systolic congestive heart failure. 4. Hypertension. 5. Psychosis. REVIEW OF HISTORY: The patient is a 66-year-old male with long history of hypertension, coronary artery disease, and CHF, admitted to [facility] telemetry with altered level of consciousness. Initial workup is significant for metabolic encephalopathy. Started on IV fluids and cardiac diet. PHYSICAL EXAMINATION: VITAL SIGNS: Temperature was 98, heart rate 88, and blood pressure 136/70. CHEST: Clear to auscultation. ABDOMEN: Soft. Bowel sounds positive. EXTREMITIES: No edema. COURSE OF HOSPITALIZATION: The patient remained stable clinically. On 07/15/2017, the patient was feeling well. No chest pain, no shortness of breath, no nausea, and no vomiting. CHEST: Clear to auscultation. ABDOMEN: Soft. Bowel sounds positive. On 07/16/2017, the patient was clinically stable. DISPOSITION: The patient transferred to [facility] to continue on his medication and diet. CONDITION ON DISCHARGE: Stable. MEDICATIONS: Follow discharge reconciliation. JOB# [id number]
== END 2017-07-16 14:45 | DRG 71 ==
LOC: TELE 10:45
PROVIDERS: ADMIT Family Medicine; ATTEND Family Medicine
DX: G93.41 Metabolic encephalopathy (principal); I50.22 Chronic systolic (congestive) heart failure; I11.0 Hypertensive heart disease with heart failure; I25.10 Atherosclerotic heart disease of native coronary artery without angina pectoris; F29 Unspecified psychosis not due to a substance or known physiological condition; E86.0 Dehydration
CPT/HCPCS: 36415-UA; 80048-TC; 85025-TC; Z7610